=== PATIENT | male | born 1965 | race Caucasian/White ===

== ENCOUNTER 2023-05-01 05:48 | Inpatient (IN) | payer OTHER, SELFPAY ==
[2023-05-01] VITALS (18 sets, daily range): BP systolic 108–164; BP diastolic 58–94; PULSE 72–86; RESP 16–39; TEMP 36.2–36.8; O2SAT 94–100; BMI 39.9; BMI 39.2
--- NOTE | 2023-05-01 06:07 | EKG12_ITS ---
Test Reason : CP Blood Pressure : / mmHG Vent. Rate : 070 BPM Atrial Rate : 070 BPM P-R Int : 172 ms QRS Dur : 096 ms QT Int : 344 ms P-R-T Axes : 032 019 076 degrees QTc Int : 371 ms Sinus rhythm with marked sinus arrhythmia Nonspecific ST and T wave abnormality Abnormal ECG Confirmed by QUINTON PEREZ, KRYSTLE ([id number]), book or script editor SHERRY LOYA ([id number]) on 05/02/2023 5:55:50 AM Referred By: JENNI Confirmed By:KRYSTLE ALCANTARA MD
--- NOTE | 2023-05-01 06:08 | ED.VIS.CHEST ---
HPI History of Present Illness Chief Complaint: Chest Pain Informant: patient, spouse/S.O. and EMS Onset/Context/Timing Onset: Today Narrative Narrative: Patient presents secondary to chest pain. He states he got up around 330 this morning to start doing chores. He felt okay when he got up but while doing chores developed midsternal chest pain. Patient went back to the house and was able to call for EMS. Patient's pain improved after 2 sublingual nitroglycerin. He also received aspirin. Patient actually states he has been having similar pain for the past 2 or 3 weeks with exertion. He will improve when he sits to rest. He had not told anyone about the chest pain he had been experiencing. Family history significant for mother passing from a heart attack at the age of 59. [facility] Medical History Myasthenia gravis Home Medications atorvastatin 40 mg tablet 40 mg PO QHS 05/01/23 [History Last Taken Unknown] hydrochlorothiazide 1 cap PO DAILY 05/01/23 [History Last Taken Unknown] telmisartan 40 mg tablet 40 mg PO DAILY 05/01/23 [History Last Taken Unknown] Allergy/AdvReac Type Severity Reaction Status Date / Time No Known Allergies Allergy Verified 05/01/23 05:55 Family History (Updated 05/01/23 @ 07:[address] Edis Guzmán MD) Other Heart disease Social History Smoking Status: Never smoker ROS ROS ED Constitutional Constitutional ED: Denies chills or fever(s) Eyes Eyes: Denies change in vision or discharge from eye(s) ENT ENT ED: Denies discharge from eye(s), rhinorrhea or sore throat Cardiovascular Cardiovascular: Reports chest pain; Denies palpitations Respiratory/Chest Respiratory/Chest: Denies cough or dyspnea Gastrointestinal Gastrointestinal: Denies abdominal pain, nausea or vomiting Musculoskeletal Musculoskeletal: Reports extremity pain; Denies back pain Integumentary Denies Abrasions or rash Neurologic Neurologic: Denies headache(s) or weakness Psychiatric Psychiatric: Denies anxiety or depression Allergic/Immunologic Allergic/Immunologic ED: Denies lip swelling or urticaria EXAM Physical Exam Const Vital Signs: 05/01/23 05:56 05/01/23 06:01 05/01/23 06:18 Temperature 97.1 F L 97.1 F L Temperature Source Temporal Temporal Pulse Rate 80 80 Respiratory Rate 30 H 30 H Blood Pressure 122/76 H 122/76 H Blood Pressure Mean 91 91 Pulse Ox 99 97 98 Oxygen Delivery Method Room Air Room Air Room Air Positive well nourished and well developed General Appearance ED: well developed HEENT Reports moist mucous membranes Eyes EOMs intact bilaterally Chest Wall inspection of chest normal and palpation of chest normal Resp normal respiratory effort and clear to auscultation bilaterally Cardio regular rate and regular rhythm GI soft to palpation and non-tender Extremity normal to inspection Neuro oriented x3 and no sensory deficits noted Motor Exam: strength 5/5 throughout Psych mental status grossly normal Skin no rashes or lesions noted Heart Score History: Moderately Suspicious ECG: Nonspecific Repolarization Age: >45 - <65 years Risk Factors: 1 or 2 Risk Factors Troponin: >/=3 x Normal Limit Score: 6 MDM MDM MDM Narrative Medical decision making narrative: Prehospital EKG was reviewed and revealed no evidence of acute ischemia. He has already received aspirin and 2 sublingual nitroglycerin. Patient placed on loss prevention leader. EKG obtained to evaluate for cardiac arrhythmia/ischemia. Chest x-ray obtained to evaluate for acute lung pathology, cardiac size, or mediastinal abnormality. Labwork obtained to evaluate for leukocytosis, anemia, and electrolyte derangement. History & Record Review Discussion w/independent historian: EMS personnel, Patient and Significant other Lab Data Attestation: I reviewed the patient's lab results. Labs: Laboratory Results - last 24 hr 05/01/23 05:15 WBC 9.7 RBC 5.07 Hgb 15.0 Hct 45.5 MCV 89.7 MCH 29.6 MCHC 33.0 RDW Std Deviation 42.7 RDW Coeff of Dre 13.2 Plt Count 253 MPV 11.1 Immature Gran % (Auto) 0.600 Neut % (Auto) 51.7 Lymph % (Auto) 36.7 Clay % (Auto) 8.4 Eos % (Auto) 2.2 Baso % (Auto) 0.4 Absolute Neuts (auto) 5.0 Absolute Lymphs (auto) 3.57 Nucleated RBC % 0 Sodium 138 Potassium 4.6 Chloride 106 Carbon Dioxide 30.0 Anion Gap 2 L BUN 14 Creatinine 1.16 Estim Creat Clear Calc 77.12 Est GFR (MDRD) Af Amer 83 Est GFR (MDRD) Non-Af 69 BUN/Creatinine Ratio 12.1 Glucose 121 H Calcium 9.9 Troponin I High Sens 271 H* Radiography Chest X-Ray - ED: 1 View, Read by ED Physician and Chronic Changes Diagnostic Testing: Clinical Impression(s) from Imaging Studies Chest X-Ray 05/01/23 06:20 IMPRESSION: No acute findings in the chest. Electronically Signed: Sweetie Kendrick MD at 6:44 EST , EKG Initial EKG: Attestation: I personally reviewed and interpreted this EKG as follows: Interpretation: Sinus Rhythm (Sinus at [address] change. Some baseline artifact noted. Prehospital EKG had been reviewed and revealed no evidence of ischemia.) Treatment and Re-Evaluation :: CBC was normal white count 9.7 with a hemoglobin of 15. Chemistry studies unremarkable. Troponin is elevated at 271. Portable chest x-ray per my interpretation reveals chronic changes with no focal infiltrate. Radiology interpretation reviewed and agrees. EKG is sinus rhythm with no obvious ischemia. On repeat evaluation patient states his pain is around a 2. He does not feel short of breath. I spoke with Dr. Burgos, on-call for cardiology. He asked that we start the patient on a heparin drip and keep him n.p.o. Plan will be to go for a heart cath today. I will also place Nitropaste on his chest as he is still having some mild chest pain. I will speak with hospitalist regarding admission. Discharge Plan Dx/Rx/DC Orders Clinical Impression: Non-ST elevation SC (NSTEMI) Disposition Disposition: Acute Care [facility]
--- NOTE | 2023-05-01 06:20 | RAD_ITS ---
EXAM: XR CHEST, 1 VIEW CLINICAL INDICATION: chest pain TECHNIQUE: Frontal view of the chest. COMPARISON: No relevant prior studies available. FINDINGS: LUNGS AND PLEURAL SPACES: Mildly low lung volumes. No convincing infiltrate or effusion. No pneumothorax. HEART: Unremarkable. Cardiac silhouette not enlarged. MEDIASTINUM: Central airways and mediastinal contour are unremarkable. BONES/JOINTS: Minimal thoracic spondylosis. No acute fracture. SOFT TISSUES: Unremarkable. RAD/Chest 1 View (Portable) IMPRESSION: No acute findings in the chest. Electronically Signed: Sweetie Kendrick MD at 6:44 EST ,
[2023-05-01 06:40] LABS: Absolute Lymphocyte Count 3.57 X10^3/uL (0.83-4.51); Basophil# 0.04 X10^3/uL; Basophil% 0.4 % (0-1); Eosinophil# 0.21 X10^3/uL; Eosinophils% 2.2 % (0-5); Hematocrit 45.5 % (40-54); Lymphocyte # 3.57 X10^3/ul (0.83-4.51); Lymphocyte % 36.7 % (19-41); Mean Corpuscular Hgb 29.6 pg (27.0-32.0); Mean Corpuscular Volume 89.7 fL (80-94); Mean Platelet Vol. 11.1 fl (6.2-12.0); Monocyte# 0.82 X10^3/uL; Monocyte% 8.4 % (0-10); NRBC Flagged by Analyzer 0 % (0-5); Neutrophil # 5.04 X10^3/uL (2.7-7.7); Neutrophil % 51.7 % (47-70); Platelet Count 253 K/mm3 (150-450); RBC Distribution Width CV 13.2 % (11.6-14.6); RBC Distribution Width SD 42.7 fl (35.1-43.9); Red Blood Count 5.07 M/mm3 (4.6-6.2); White Blood Count 9.7 K/mm3 (4.4-11.0)
[2023-05-01 07:06] LABS: Anion Gap 2 (5-15); BUN 14 mg/dL (7-18); BUN/Creat Ratio 12.1 RATIO (10-20); Calcium,Total 9.9 mg/dL (8.5-10.1); Chloride 106 mmol/L (98-107); Creatinine, Serum 1.16 mg/dL (0.70-1.30); EST Glomerular Filtration Rate 69 mL/min (>60); Est Glom Filt Rate - Afr Amer 83 mL/min (>60); Estimated Creatinine Clearance 77.12 ml/min; Glucose 121 mg/dL (74-106); Potassium 4.6 mmol/L (3.5-5.1); Sodium Level 138 mmol/L (136-145); Troponin-I HS (w/2H Reflex) 271 pg/mL (3.0-78.0)
--- NOTE | 2023-05-01 07:28 | PCM.HP.STD ---
HPI - General General Date of Admission: 05/01/23 HPI Narrative CARLY ORELLANA, is a 58 M who presents to the hospital with chest pain. He has been having intermittent chest pain for the last several weeks but today it was worse and was not going away. He denies any association with activity in terms of making his chest pain better or worse. He did have an elevated troponin on admission to the ER with a nonischemic EKG soon started on a heparin drip and cardiology was consulted by the ER and they plan to proceed with a heart cath today. [facility] Medical History (Updated 05/01/23 @ 12:46 by Krys CRUZ, PA) CAD (coronary artery disease), [place] coronary artery Cardiomyopathy, ischemic Meningitis spinal Myasthenia gravis Home Medications atorvastatin 40 mg tablet 40 mg PO QHS 05/01/23 [History Last Taken Unknown] hydrochlorothiazide 1 cap PO DAILY 05/01/23 [History Last Taken Unknown] telmisartan 40 mg tablet 40 mg PO DAILY 05/01/23 [History Last Taken Unknown] Allergy/AdvReac Type Severity Reaction Status Date / Time No Known Allergies Allergy Verified 05/01/23 05:55 Family History (Updated 05/01/23 @ 08:30 by Amanda Shine) Mother Heart disease Father CVA (cerebral vascular accident) Diabetes Daughter Heart disease Surgical History (Updated 05/01/23 @ 12:46 by Krys CRUZ, PA) S/P coronary artery stent placement Social History Smoking Status: Never smoker ROS Constitutional Constitutional: Denies chills, fatigue, fever(s) or malaise Eyes Eyes: Denies blurry vision ENT HEENT: Denies headache(s) or nasal discharge Cardiovascular Cardiovascular: Reports chest pain; Denies dyspnea on exertion or syncope Respiratory/Chest Respiratory/Chest: Denies cough, shortness of breath at rest or shortness of breath with exertion Gastrointestinal Gastrointestinal: Denies constipation, diarrhea, nausea or vomiting Genitourinary Genitourinary: Denies dysuria Neurologic Neurologic: Denies focal weakness, numbness or tremor(s) Psychiatric Psychiatric: Denies anxiety or depression Vital Signs Vital Signs Vital Signs: 05/01/23 05:56 05/01/23 06:01 05/01/23 06:18 Temperature 97.1 F L 97.1 F L Temperature Source Temporal Temporal Pulse Rate 80 80 Respiratory Rate 30 H 30 H Blood Pressure 122/76 H 122/76 H Blood Pressure Mean 91 91 Pulse Ox 99 97 98 Oxygen Delivery Method Room Air Room Air Room Air Weight Weight: 294 lb 12.128 oz Body Mass Index (BMI) 39.9 Physical Exam Narrative General: Alert, Oriented x3, Cooperative, No apparent distress, morbid obesity HEENT: Atraumatic, PERRLA, EOMI, Normocephalic Oral: Moist Mucosa Neck: Supple, No JVD Lungs: Diminished, Normal air movement, No rhonchi, No wheeze, No rales Cardiovascular: Regular rate, Regular Rhythm, Normal S1, Normal S2, No murmurs Abdomen: Soft, Non Tender, Non-Distended, No Hepato-splenomegaly Extremities: No edema, Capillary Refill Less than 3 Seconds Skin: No rashes, No breakdown Musculoskeletal: No Tenderness to Palpation of Joints or Extremities Neurological: Cranial nerves II-XII grossly intact, Motor Exam 5/5 strength throughout, Sensory exam intact to light touch and pain Psych/Mental Status: Flat Results Lab / Micro Data 05/01/23 05:15 05/01/23 05:15 Labs: Laboratory Results - last 24 hr 05/01/23 05:15: WBC 9.7, RBC 5.07, Hgb 15.0, Hct 45.5, MCV 89.7, MCH 29.6, MCHC 33.0, RDW Std Deviation 42.7, RDW Coeff of Dre 13.2, Plt Count 253, MPV 11.1, Immature Gran % (Auto) 0.600, Neut % (Auto) 51.7, Lymph % (Auto) 36.7, Marion % (Auto) 8.4, Eos % (Auto) 2.2, Baso % (Auto) 0.4, Absolute Neuts (auto) 5.0, Absolute Lymphs (auto) 3.57, Nucleated RBC % 0, Sodium 138, Potassium 4.6, Chloride 106, Carbon Dioxide 30.0, Anion Gap 2 L, BUN 14, Creatinine 1.16, Estim Creat Clear Calc 77.12, Est GFR (MDRD) Af Amer 83, Est GFR (MDRD) Non-Af 69, BUN/Creatinine Ratio 12.1, Glucose 121 H, Calcium 9.9, Troponin I High Sens 271 H* Imagaing Radiology Impression Chest X-Ray 05/01/23 06:20 IMPRESSION: No acute findings in the chest. Electronically Signed: Sweetie Kendrick MD at 6:44 EST , Assessment & Plan Assessment/Plan (1) Non-ST elevation ID (NSTEMI): PLAN: Plan 1. Non-STEMI/HLD/HTN/morbid obesity ? Can resume his home blood pressure medications ? Will consult cardiology for heart cath ? Echo is pending ? Will continue with the heparin drip ? I did spend 20 minutes discussing lifestyle modifications in terms of weight loss and dieting 2. Myasthenia gravis ? This is limited his ability to work however he does not take any chronic medications he does take natural supplements which she says has helped DVT: Heparin drip 75 minutes was spent on direct patient care, including documentation as well as chart review and collaboration with colleagues Charges/Coding Visit Charges Inpatient E&M: 26099 Init Hosp L3
[2023-05-01] MEDS: Nitroglycerin Oint 1 INCH PACKET TD (07:36)
[2023-05-01] MEDS: Heparin Injection (Vial) 5,000 UNIT/ML VIAL 4000 UNIT IV (07:41)
[2023-05-01] MEDS: HEPARIN/D5w 25,000 UNITS 25,000 UNITS/250 ML IV.SOLN. 10 UNITS CONT INF (07:42)
[2023-05-01 07:50] LABS: International Normalized Ratio 0.9; Prothrombin Time (Protime)PT. 12.3 SECONDS (11.7-14.9)
[2023-05-01 07:51] LABS: Partial Thromboplast Time 26.1 Seconds (24.1-36.2)
[2023-05-01 08:28] LABS: Reflex Troponin-HS? (from REC) Y
[2023-05-01 09:21] LABS: Troponin-I HS 8901 pg/mL (3.0-78.0)
--- NOTE | 2023-05-01 09:29 | EKG12_ITS ---
Test Reason : CP Blood Pressure : / mmHG Vent. Rate : 090 BPM Atrial Rate : 090 BPM P-R Int : 168 ms QRS Dur : 100 ms QT Int : 360 ms P-R-T Axes : 017 011 044 degrees QTc Int : 440 ms Normal sinus rhythm Septal infarct , age undetermined Abnormal ECG When compared with ECG of 01-MAY-2023 05:54, MANUAL COMPARISON REQUIRED, DATA IS UNCONFIRMED Confirmed by QUINTON PEREZ, KRYSTLE ([id number]), news assignment editor SHERRY LOYA ([id number]) on 05/02/2023 6:02:17 AM Referred By: Confirmed By:KRYSTLE ALCANTARA MD
--- NOTE | 2023-05-01 09:56 | ECHOD_ITS ---
Reason For Study: NSTEMI Procedure This was a 2D Doppler, Color Flow transthoracic echocardiogram. The study was technically difficult. Exam performed portable in patient room. Left Ventricle Normal LV size. Mild eccentric left ventricular hypertrophy. Apical false tendon noted. The estimated ejection fraction is 45-50 %. Stage 1 diastolic dysfunction. There are regional wall motion abnormalities as specified. Mid-anteroseptal : Hypokinetic. Mid-Anterior : Hypokinetic. Anterior [place] : Hypokinetic. Lateral [place] : Hypokinetic. Inferior [place] : Hypokinetic. Septal [place] : Hypokinetic. Right Ventricle Normal RV size. Normal systolic function. Atria The left and right atria are normal. Mitral Valve The mitral valve is structurally normal. No prolapse or stenosis seen. Trivial mitral valve insufficiency. Tricuspid Valve Normal tricuspid valve. Trivial tricuspid valve insufficiency. Right ventricular systolic pressure estimated to be 16 mmHg. Aortic Valve Trisinus/trileaflet aortic valve. Mild focal aortic valve calcification. Aortic sclerosis, no stenosis. Pulmonic Valve Normal pulmonic valve. Great Vessels Normal aortic root. Pericardium/Pleural No pericardial effusion. Medication Diluted definity 7ml given slow IV push to enhance endocardial definition. MMode/2D Measurements & Calculations LVIDd: 3.4 cm IVSd: 1.3 cm Ao root diam: 3.2 cm LVIDs: 2.6 cm LVPWd: 0.96 cm RVDd: 3.2 cm FS: 24.0 % LAV(MOD-bp): 39.1 ml LVAd ap4: 32.7 cm2 LVAd ap2: 29.9 cm2 LAV(MOD-bp) Indexed: 15.7 ml/m2 LVLd ap4: 9.1 cm LVLd ap2: 8.9 cm LAV(MOD-sp2): 41.4 ml EDV(MOD-sp4): 95.8 ml EDV(MOD-sp2): 81.9 ml LAV(MOD-sp4): 35.4 ml EDV(sp4-el): 99.4 ml EDV(sp2-el): 84.8 ml LVAs ap4: 20.6 cm2 LVAs ap2: 18.1 cm2 LVLs ap4: 7.9 cm LVLs ap2: 7.8 cm ESV(MOD-sp4): 43.1 ml ESV(MOD-sp2): 34.8 ml ESV(sp4-el): 45.3 ml ESV(sp2-el): 35.8 ml EF(MOD-sp4): 55.0 % EF(MOD-sp2): 57.5 % EF(sp4-el): 54.4 % SV(MOD-sp4): 52.7 ml SV(MOD-sp2): 47.1 ml SV(sp4-el): 54.1 ml LA A4 area: 14.3 cm2 LA dimension(2D): 3.2 cm RA A4 area: 10.9 cm2 TAPSE: 1.7 cm Time Measurements MV dec time: 0.16 sec Doppler Measurements & Calculations MV E max erik: 36.9 cm/sec Lat Peak E' Erik: 9.2 cm/sec Med Peak E' Erik: 6.4 cm/sec MV A max erik: 74.7 cm/sec E/E' lat: 4.0 E/E' med: 5.8 MV E/A: 0.49 Ao V2 max: 97.8 cm/sec LV V1 max: 82.7 cm/sec PA V2 max: 72.8 cm/sec Ao max P.8 mmHg LV V1 max P.7 mmHg TR max erik: 179.8 cm/sec TR max P.9 mmHg ECHO/Echo Complete W/ Contrast Interpretation Summary Stage 1 diastolic dysfunction. There are regional wall motion abnormalities as specified. Mild eccentric left ventricular hypertrophy. The estimated ejection fraction is 45-50 %. No previous echo to compare The study was technically difficult. Contrast injection was performed. Ordering Physician: Krys Mora Referring Physician: Rodolfo Garcia Performed By: Kat Andrade RDCS
[2023-05-01] MEDS: Losartan Potassium 50 MG Tablet PO (11:03)
--- NOTE | 2023-05-01 12:37 | CON.PCM.CA_ITS ---
Assessment & Plan Assessment/Plan (1) Non-ST elevation RI (NSTEMI): (2) CAD (coronary artery disease), andreafski coronary artery: (3) S/P coronary artery stent placement: (4) Cardiomyopathy, ischemic: PLAN: Plan * Pt underwent stenting to his LAD. He will be started on Brilinta, this should not be interrupted for at least one year. He will be started on metoprolol, ASA, Atorvastatin. He will continue with his Losartan and HCTZ. * Pt EF was noted to be 45-50%. Will continue with medical therapy and repeat echo in 3 months to reassess LV function. * Will refer to cardiac rehab * Will f/u in office. HPI Consult Data Date of Consult: 05/01/23 HPI Narrative HPI Narrative: CARLY ORELLANA, is a 58 M who presented to [facility] ER with CP and elevated troponins. He stated he got up around 330 this morning to start doing chores. He felt okay when he got up but while doing chores developed midsternal chest pain. It was an 8/10. Patient went back to the house and was able to call for EMS. Patient's pain improved after 2 sublingual nitroglycerin. He also received aspirin. Patient actually states he has been having similar pain for the past 2 or 3 weeks with exertion. He will improve when he sits to rest. He had not told anyone about the chest pain he had been experiencing. Currently he has CP that is a 2/10. He notes it did improve with NTG paste. Troponins trended 271/8901. He does have a hx of myasthenia gravis. He does not have a hx of cardiac issu es, however his mom at the age of 59. [facility] Medical History (Updated 05/01/23 @ 12:46 by Krys CRUZ, PA) CAD (coronary artery disease), [place]re[place] coronary artery Cardiomyopathy, ischemic Meningitis spinal Myasthenia gravis Home Medications atorvastatin 40 mg tablet 40 mg PO QHS 05/01/23 [History Last Taken Unknown] hydrochlorothiazide 1 cap PO DAILY 05/01/23 [History Last Taken Unknown] telmisartan 40 mg tablet 40 mg PO DAILY 05/01/23 [History Last Taken Unknown] Allergy/AdvReac Type Severity Reaction Status Date / Time No Known Allergies Allergy Verified 12/19/23 05:55 Family History (Updated 05/01/23 @ 08:30 by Amanda Shine) Mother Heart disease Father CVA (cerebral vascular accident) Diabetes Daughter Heart disease Surgical History (Updated 05/01/23 @ 12:46 by Krys Mora PA, PA) S/P coronary artery stent placement Social History Smoking Status: Never smoker ROS Constitutional Constitutional: Denies chills, fatigue, frequent falls, headache(s) or lethargy Eyes Eyes: Denies acute decrease in peripheral vision, blurry vision or change in vision ENT HEENT: Denies dizziness, epistaxis, headache(s), tinnitus or vertigo Cardiovascular Cardiovascular: Reports chest pain at rest and chest pain with activity; Denies claudication, dyspnea at rest, dyspnea on exertion, edema, irregular heart rhythm, lightheadedness, orthopnea, orthostatic symptoms, palpitations or pedal edema Respiratory/Chest Respiratory/Chest: Denies cough or wheezing Gastrointestinal Gastrointestinal: Denies abdominal pain, bloating, coffee ground emesis, diarrhea, heartburn, hematemesis, hematochezia, melena or nausea Genitourinary Genitourinary: Denies hematuria Musculoskeletal Musculoskeletal: Denies myalgias, numbness or tingling Neurologic Neurologic: Denies abnormal gait, abnormal speech, memory loss, paresthesias or weakness Physical Exam Const alert, oriented x3, no apparent distress and healthy appearing HEENT normocephalic, head/scalp atraumatic, hearing grossly normal bilaterally, external ears normal, external nose normal and moist oral mucous membranes Eyes PERRL, EOMs intact bilaterally, conjunctivae normal and no scleral icterus Neck no lymphadenopathy, supple and no JVD Cardio regular rate, regular rhythm, S1 normal heart sound, S2 normal heart sound, no murmurs, no rub, no gallops, no clicks, no JVD and peripheral pulses 2+ throughout GI normal to inspection, nondistended, normoactive bowel sounds, soft to palpation, non-tender and non-distended Extremity normal to inspection, normal capillary refill, no clubbing, cyanosis or edema and no pedal edema Neuro oriented x3, CN's II-XII intact bilaterally, moves all extremities and no focal motor deficits Psych cooperative and affect normal Risk Stratification Risk Stratification Applicable: Yes Age >/= 65: No >/= 3 CAD Risk Factors (HTN, HLD, DM, family hx of CAD, or current smoker): Yes Aspirin Use in the Past 7 Days: No Severe Angina (>/= episodes in 24 hours): Yes EKG ST Changes >/= 0.5mm: No Positive Cardiac Marker: Yes KALEB Risk Stratification Score: 3 KALEB % Risk: 13% Risk Charges/Coding Visit Charges Office Visits / Consults: [id number] IP Consult L4 Objective Data Vital Signs: Vital Signs Temp Pulse Resp BP Pulse Ox O2 Del Method 98.2 F 79 16 130/80 H 99 Room Air 05/01/23 08:21 05/01/23 08:21 05/01/23 08:21 05/01/23 08:21 05/01/23 08:21 05/01/23 08:30 Oxygen Delivery Method Room Air Weight: 289 lb 3.944 oz Body Mass Index (BMI) 39.2 Lab / Micro Data 05/01/23 05:15 05/01/23 05:15 Labs: Laboratory Results - last 24 hr 05/01/23 05:15: WBC 9.7, RBC 5.07, Hgb 15.0, Hct 45.5, MCV 89.7, MCH 29.6, MCHC 33.0, RDW Std Deviation 42.7, RDW Coeff of Dre 13.2, Plt Count 253, MPV 11.1, Immature Gran % (Auto) 0.600, Neut % (Auto) 51.7, Lymph % (Auto) 36.7, Dillon % (Auto) 8.4, Eos % (Auto) 2.2, Baso % (Auto) 0.4, Absolute Neuts (auto) 5.0, Absolute Lymphs (auto) 3.57, Nucleated RBC % 0, PT 12.3, INR 0.9, APTT 26.1, Sodium 138, Potassium 4.6, Chloride 106, Carbon Dioxide 30.0, Anion Gap 2 L, BUN 14, Creatinine 1.16, Estim Creat Clear Calc 77.12, Est GFR (MDRD) Af Amer 83, Est GFR (MDRD) Non-Af 69, BUN/Creatinine Ratio 12.1, Glucose 121 H, Calcium 9.9, Troponin I High Sens 271 H* 05/01/23 08:37: Troponin I High Sens 8901 H* Cardiology Labs/Tests 05/01/23 05:15: WBC 9.7, RBC 5.07, Hgb 15.0, Hct 45.5, MCV 89.7, MCH 29.6, MCHC 33.0, Plt Count 253, MPV 11.1, Immature Gran % (Auto) 0.600, Neut % (Auto) 51.7, Lymph % (Auto) 36.7, [place] % (Auto) 8.4, Eos % (Auto) 2.2, Baso % (Auto) 0.4, Absolute Neuts (auto) 5.0, Nucleated RBC % 0, PT 12.3, INR 0.9, APTT 26.1, Sodium 138, Potassium 4.6, Chloride 106, Carbon Dioxide 30.0, Anion Gap 2 L, BUN 14, Creatinine 1.16, Est GFR (MDRD) Af Amer 83, Est GFR (MDRD) Non-Af 69, BUN/Creatinine Ratio 12.1, Glucose 121 H, Calcium 9.9 Rhythm: SR Radiography Diagnostic Testing: Radiology Impression Chest X-Ray 05/01/23 06:20 IMPRESSION: No acute findings in the chest. Electronically Signed: Sweetie Kendrick MD at 6:44 EST , Echocardiogram 05/01/23 09:56 Interpretation Summary Stage 1 diastolic dysfunction. There are regional wall motion abnormalities as specified. Mild eccentric left ventricular hypertrophy. The estimated ejection fraction is 45-50 %. No previous echo to compare The study was technically difficult. Contrast injection was performed. Ordering Physician: Krys Mora Referring Physician: Rodolfo Garcia Performed By: Kat Andrade, ADRIANA
--- NOTE | 2023-05-01 12:57 | PCIREPORT_ITS ---
PCI Cardiac Cath Report PCI Report: Procedure performed; 1. Moderate sedation 2. Selective left coronary angiography 3. Selective right coronary angiography 4. Successful PCI of the culprit which is subtotal mid LAD 99% with primary stenting using drug-eluting stent. 3 x 15 mm Sharad frontier drug-eluting stent up to 18 TOLU achieve an excellent result With reduction of stenosis to 0% And maintenance of KALEB-3 flow Placement of TR band to close the right radial artery arteriotomy site. Consent; Risk and benefit procedure explained detail patient agreed to proceed informed consent obtained. Preprocedure diagnosis; 58-year-old patient presented to the emergency department here at [facility] Clinical diagnosis of non-ST elevation MS with significant elevated troponins wall motion abnormality in the LAD distribution in the echo and abnormal EKG involving V1 V2 with a Q wave Early this morning complaining of symptoms of chest pain based on the history he has ongoing symptoms of chest pain. Patient has a change in the EKG in the LAD distribution and the echocardiographic evaluation also showed apical hypokinesia with EF in the range of 45-50% no significant valve abnormality Based on the clinical presentation patient was treated with medical therapy including aspirin high-dose statin atorvastatin as well as heparin and was brought as an urgent case this morning to the Director Of Email Marketing. Diagnostic and interventional catheter used 1. 5 [place] JL 4 diagnostic catheter 2. 5 [place] JR4 3. 5 [place] JL 400 cm guide catheter 3 x 15 mm resolute frontier drug-eluting stent Medication used in the Director Of Email Marketing we used #1 heparin heparin IV a total of 9000 units ACT level acceptable 2. Brilinta 180 mg was given in the Director Of Email Marketing 3. Patient was given aspirin by the EMS early this morning. Procedure in detail patient; Patient brought to the Director Of Email Marketing in fasting state Right radial artery area prepped and draped in the usual sterile fashion 6 [place] sheath placed in the right radial artery/thrombosheath Then we will proceed with a diagnostic catheter, 5 [place] JL 4 advancing over the cannulated the left main without difficulty multiple views of the left main obtained and identified the culprit lesion at the subtotal mid LAD. Then we will proceed with a 5 [place] JR4 cannulated the ostium of the RCA without difficulty and 2 views of the RCA were obtained Following this we decided to proceed for the PCI of the culprit lesion We used a 5 [place] JL 4 guide catheter Advanced sending aorta cannulated the left main And then we proceed with run-through guide guidewire/0.014 180 cm run-through extra floppy straight guide wire across the lesion in the mid LAD Then we will proceed with primary stenting using 3 x 15 mm drug-eluting stent were able to achieve the excellent result patient remained stable no symptoms of chest pain Following this a TR band applied to right radial artery arteriotomy site to maintain hemostasis Coronary angiography findings Patient had an echocardiogram which showed wall motion abnormality in the LAD distribution and the apical hypokinesia LV EGD was not performed to minimize the risk and to minimize risk of thrombus dislodgment from the apical portion of the LV. I reviewed the echocardiographic study prior to perform cardiac catheterization. 1. Left main is large vessel bifurcating into LAD and left circumflex Angiographically the left main is normal 2. Left anterior descending is a large vessel with subtotal mid LAD 99% After the second diagonal branch and a very septal branch There were 3 diagonal branches there is diagonal second and third diagonal with no significant atherosclerosis The mid LAD lesion which is the culprit is 99% followed by a lesion of around 40% in the mid LAD. #3 left circumflex is large with the pheresed OM has no significant atherosclerosis the circumflex in the AV groove is normal as well 4. RCA is large dominant and normal angiographically Conclusion recommendation 58-year-old patient based on the history from the patient had myasthenia gravis Also has elevated blood sugar advised to follow-up with the primary care physician to discuss further plan for management From cardiac standpoint patient will continue on dual antiplatelet therapy with Brilinta 90 mg twice daily in addition to low-dose aspirin for 1 year and aspirin indefinitely 3. Patient is scheduled for cardiac rehab program phase 1 4. Patient to follow-up with the cardiology group at [facility] for continuation of cardiac care and clinical follow-up. Andrés Burgos MD,[facility]
--- NOTE | 2023-05-01 13:00 | EKG12_ITS ---
Test Reason : Blood Pressure : / mmHG Vent. Rate : 080 BPM Atrial Rate : 080 BPM P-R Int : 184 ms QRS Dur : 108 ms QT Int : 350 ms P-R-T Axes : 033 027 064 degrees QTc Int : 403 ms Poor data quality, interpretation may be adversely affected Normal sinus rhythm Nonspecific T wave abnormality Abnormal ECG Confirmed by QUINTON PEREZ, KRYSTLE ([id number]), business editor SELAM MCCORMICK ([id number]) on 05/03/2023 10:49:41 AM Referred By: Confirmed By:KRYSTLE ALCANTARA MD
--- NOTE | 2023-05-01 13:15 | CASEMGMT ---
RN CM Face to Face with patient for initial transition planning/care coordination assessment. RN CM introduced self and role at [facility]. Patient lying in bed, alert and oriented, and daughter at bedside. Patient willing to participate in assessment and is able to answer all questions appropriately. Care providers, pharmacy, and demographics verified. Patient wishes to discharge home, denies need for home health at this time. Patient states he has no further needs or concerns at this time. CM to follow for discharge planning needs that may arise. PCP: Jose Specialists: none Preferred Pharmacy: [facility]; [facility] Retail Insurance: [employer] Prescription Benefit: none Living Will/HPOA: none LNOK: Living Arrangements: Patient lives with and children in a 2 story home, bed and bath on first floor, 3 steps to enter. Patient was independent at home. Transportation: Driving Service DME/HHC: Patient denies DME in the home. No previous HHC or SNF Disposition Plan: Patient to discharge home with family support and follow-up plans in place. Annita SCHMIDTN, RN, CM
[2023-05-01] MEDS: 0.9% Normal Saline (1000mL) 1,000 ML 75 ML IV (13:30)
[2023-05-01] MEDS: hydroCHLOROthiazide 12.5mg 12.5 MG PO (14:02)
--- NOTE | 2023-05-01 14:25 | CASEMGMT ---
Per Nursing admission questions patient does not have a Healthcare Power of Heating And Refrigeration Inspector or Healthcare Living Will. Patient declined information on documents. Mariza LOAIZA
--- NOTE | 2023-05-01 15:08 | CRPHASE1 ---
Patient Communication Patient Information PHII Cardiac Rehab Discussed with Patient:: Yes Guide to Cardiac Rehab Given to Patient:: Yes Cardiac Rehab Facility Choice List Given to Patient:: Yes Communication to Cardiac Rehab Insole Department Worker:: Andrés Burgos Phase II Cardiac Rehab:: Yes Sessions:: 36 sessions - 3 days/wk, 12 weeks Cardiac Rehabilitation Info Program Information Cardiac Rehabilitation Program Information: Cardiac Rehab The cardiac rehab team at [facility] consists of highly skilled exercise physiologists, nurses, respiratory therapists and physicians working together with you. Our purpose is to help you have a full recovery and achieve the goals you set for yourself. Over the years many of our patients have returned to activities they assumed they would never do again! We can help restore your confidence and motivation to make lifestyle changes that can have a significant impact on your health and quality of life! We can help answer questions and concerns you may have about exercise, lifestyle, medications, diet, stress and anxiety which are common following a hospitalization. WE monitor ECG and vital signs during exercise and discuss your progress with you and report to your physician(s). Cardiac Rehab is proven to help reduce readmissions, improve functional capacity and lower recurrence of problems with your heart. Our Cardiac Rehab program is Certified by the [place] [employer]Vascular [employer] Pulmonary [employer] (AACVPR) and Accredited by the [place] [employer] through our [facility]. You can contact us at . We invite you to call us with your questions or to get started in our program. If you have other questions or concerns be sure to ask your physician/provider during your follow-up visit. WE look forward to seeing you!
--- NOTE | 2023-05-01 15:09 | CRPH1.INSTRU ---
General Education Discussed with Patient CAD and cardiac anatomy and function:: Patient communicates acknowledgment Explanation of diagnoses and procedures:: Patient communicates acknowledgment Sign/Symptoms of MT:: Patient communicates acknowledgment Antiplatelet therapy: Patient communicates acknowledgment Proper use of NTG-SL: Patient communicates acknowledgment Emergency procedures and activation of EMS: Patient communicates acknowledgment Compliance of all prescribed medications: Patient communicates acknowledgment Smoking Risk Factors Patient Nicotine/Smoking Risk Factors Are:: Non-smoker Dyslipidemia Risk Factors Patient Dyslipidemia Risk Factors Are:: Total Cholesterol, Triglycerides, HDL and LDL Recommendations Recommendations Include:: Lipid profile provided, Reviewed NCEP/ATP guidelines and Therapeutic Lifestyle Change dietary guidelines Response Code Dyslipidemia Response Code:: Patient communicates acknowledgment Overweight/Obesity Risk Factors Patient Overweight/Obesity Risk Factors Are:: Obesity - > or = 30 Recommendations Recommendations Include:: Weight loss of 5-10%, Reduced calorie diet and Exercise 5-7 times/week Response Code Overweight/Obesity:: Patient communicates acknowledgment Hypertension Risk Factors Patient Hypertension Risk Factors Are:: No documented hx of HTN Diabetes Risk Factors Patient Diabetes Risk Factors Are:: No documented hx of diabetes Metabolic Syndrome Risk Factors Patient Metabolic Syndrome Risk Factors Are [3 of 5]:: Fasting blood sugar > 100 mg/dL, Waist circumference > 35 [female] or 40 [male], High triglyceride >150, Hypertension and Low HDL <40 [male] or < 50 [female] Recommendations Recommendations Include:: Reinforce compliance to risk factor modifications and Encouraged follow-up with Primary Care Physician Response Code Metabolic Syndrome Response Code:: Patient communicates acknowledgment Sedentary Risk Factors Patient Sedentary Risk Factors Are:: Lack of regular exercise Recommendations Recommendations Include:: Aerobic exercise 5-7 times/week for 20-30 minutes continuously, Benefits of regular exercise, Discussed home walking program and Monitored Outpatient Cardiac Rehab Response Code Sedentary Response Code:: Patient communicates acknowledgment Stress Recommendations Recommendations Include:: Identification of stressors, and assessment of coping skills and Stress management techniques Response Code Stress Response Code:: Patient communicates acknowledgment
--- NOTE | 2023-05-01 15:47 | CHAPLAIN ---
Type of Pastoral Visit _x__ Initial Visit ___ Follow-up Visit ___ On-call Visit ___ General Patient Visit ___ Spiritual Assessment ___ Family Conference ___ Bereavement ___ Rapid Response ___ Code Blue ___ Other (describe below) Pastoral Care Referral From ___ Patient _x__ Family _x__ Nurse ___ Physician ___ Price Analyst ___ Tax Lawyer ___ Other (describe below) Sacrament/Intervention _x__ Active listening ___ Anointing ___ Episcopalian ___ Bereavement ___ Communion ___ Claudia exploration ___ ___ Life review _x__ Prayer ___ Reconciliation ___ Sacrament of Sick _x__ Supportive presence ___ Wedding ___ Other (describe below) Pastoral Comments request came from staff that after talking with the spouse of the patient it would be appropriate and helpful to have this neon light installer meet with patient and offer support; this was done 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
[2023-05-01] MEDS: Acetaminophen 325 MG Tablet 650 MG PO (15:48)
[2023-05-01] MEDS: Atorvastatin Calcium 40 MG Tablet PO (20:55)
[2023-05-01] MEDS: Metoprolol Tartrate 25 MG Tablet PO (20:55)
[2023-05-02] MEDS: Acetaminophen 325 MG Tablet 650 MG PO (02:14)
[2023-05-02 02:15] VITALS: BP 109/80; PULSE 73; RESP 16; TEMP 36.8; O2SAT 93
[2023-05-02 04:17] LABS: ACT Activated Clotting Time 233 sec (74-137)
[2023-05-02 04:18] LABS: ACT Activated Clotting Time 244 sec (74-137)
[2023-05-02 05:31] LABS: Absolute Lymphocyte Count 2.82 X10^3/uL (0.83-4.51); Absolute Neutrophil Count 5.6 X10^3/uL (2.0-7.7); Basophil# 0.03 X10^3/uL; Basophil% 0.3 % (0-1); Eosinophil# 0.23 X10^3/uL; Eosinophils% 2.4 % (0-5); Hematocrit 42.6 % (40-54); Hemoglobin 14.1 g/dL (13.0-16.5); Lymphocyte # 2.82 X10^3/ul (0.83-4.51); Lymphocyte % 29.7 % (19-41); Mean Corp Hgb Conc 33.1 g/dL (32-36); Mean Corpuscular Hgb 29.8 pg (27.0-32.0); Mean Corpuscular Volume 90.1 fL (80-94); Mean Platelet Vol. 10.6 fl (6.2-12.0); Monocyte# 0.73 X10^3/uL; Monocyte% 7.7 % (0-10); NRBC Flagged by Analyzer 0 % (0-5); Neutrophil # 5.64 X10^3/uL (2.7-7.7); Neutrophil % 59.4 % (47-70); Platelet Count 215 K/mm3 (150-450); RBC Distribution Width CV 12.9 % (11.6-14.6); RBC Distribution Width SD 41.8 fl (35.1-43.9); Red Blood Count 4.73 M/mm3 (4.6-6.2); White Blood Count 9.5 K/mm3 (4.4-11.0)
[2023-05-02 06:10] LABS: ALB/GLOB Ratio 0.9 RATIO (0.9-2.4); AST(SGOT) 124 U/L (15-37); Alanine Aminotransfer ALT/SGPT 51 U/L (16-61); Albumin, Serum 3.2 g/dL (3.2-5.0); Alkaline Phosphatase 59 U/L (45-117); Anion Gap 6 (5-15); BUN 13 mg/dL (7-18); BUN/Creat Ratio 14.5 RATIO (10-20); Calcium,Total 8.6 mg/dL (8.5-10.1); Chloride 108 mmol/L (98-107); EST Glomerular Filtration Rate 93 mL/min (>60); Est Glom Filt Rate - Afr Amer 112 mL/min (>60); Globulin 3.5 g/dL (2.2-4.2); Glucose 109 mg/dL (74-106); Potassium 3.9 mmol/L (3.5-5.1); Protein, Total 6.7 g/dL (6.4-8.2); Sodium Level 139 mmol/L (136-145)
[2023-05-02 08:15] VITALS: BP 109/78; PULSE 85; RESP 12; TEMP 37; O2SAT 95
[2023-05-02 08:34] VITALS: O2SAT 96
[2023-05-02 09:11] VITALS: BP 109/78; PULSE 85
[2023-05-02] MEDS: hydroCHLOROthiazide 12.5mg 12.5 MG PO (09:11)
[2023-05-02] MEDS: Aspirin E.C. 81 MG Tablet PO (09:11)
[2023-05-02] MEDS: Losartan Potassium 50 MG Tablet PO (09:11)
[2023-05-02] MEDS: Metoprolol Tartrate 25 MG Tablet PO (09:11)
[2023-05-02] MEDS: TICAGRELOR 90 MG TABLET PO (09:15)
--- NOTE | 2023-05-02 10:00 | EKG12_ITS ---
Test Reason : AM EKG Blood Pressure : / mmHG Vent. Rate : 074 BPM Atrial Rate : 074 BPM P-R Int : 184 ms QRS Dur : 102 ms QT Int : 446 ms P-R-T Axes : 035 028 104 degrees QTc Int : 495 ms Normal sinus rhythm T wave abnormality, consider anterolateral ischemia Prolonged QT Abnormal ECG When compared with ECG of 01-MAY-2023 16:56, MANUAL COMPARISON REQUIRED, DATA IS UNCONFIRMED Confirmed by QUINTON PEREZ, KRYSTLE ([id number]), manuscript editor SHERRY LOYA ([id number]) on 05/04/2023 5:50:51 AM Referred By: Confirmed By:KRYSTLE ALCANTARA MD
--- NOTE | 2023-05-02 11:21 | DCINST_ITS ---
Discharge Instructions Diet Discharge Diet: Low fat / Low cholesterol Activity Discharge Activity: Return to Normal Activity Dressing / Incision Call your doctor if you observe: Fever of 101 or Higher, Shortness of breath, Dizziness, Fainting spells, Swelling in the ankles, Chest pain and Increased palpitations (irregular heartbeat) Follow Up Care Test Results: Test results from this visit will be discussed in further detail at your follow- up appointment, if applicable. Discharge Plan Admission Admit Date/Time: 05/01/23 07:20 Attending Provider: Edis Guzmán Primary Care Provider: Rodolfo Garcia Consulting Providers: Andrés Burgos Discharge Orders/Prescriptions Prescriptions: New aspirin 81 mg Tablet,Delayed Release (Dr/Ec) 81 mg PO DAILY@0800 30 Days Qty: 30 0RF Brilinta 90 mg Tablet 90 mg PO BID 30 Days Qty: 60 0RF carvedilol [Coreg] 3.125 mg tablet 3.125 mg PO BID Qty: 60 0RF Rx Instructions: must administer with a meal/food Jardiance 10 mg tablet 10 mg PO DAILY Qty: 30 0RF Continued hydrochlorothiazide 1 cap PO DAILY Rx Instructions: 12.5MG atorvastatin 40 mg tablet 40 mg PO QHS telmisartan 40 mg tablet 40 mg PO DAILY Referrals / Follow Up: Andrés Burgos MD [Med Staff - Active Staff] - Within 1 Month Rodolfo Garcia DO [Primary Care Provider] - Within 1 Week Disposition Disposition (needs filled in before D/C Order can be placed): Home, Self Care
[2023-05-02 11:24] VITALS: BP 110/67; PULSE 75; RESP 12; TEMP 37
--- NOTE | 2023-05-02 12:32 | NURSING ---
Pts PIV removed. Pt made aware of mendoza of Jardiance. Pt stated he can not pay that at this time. MD made aware. okay discharging pt without jardiance. Pt to follow up with PCP about jardicance. Discharge paperwork given and reviewed with pt. Other prescriptions being brought to bedside before pt leaves.
--- NOTE | 2023-05-02 13:34 | PN.CARD_ITS ---
<Statement entered by Andrés Burgos MD - 05/02/23 16:06> Pt seen & evaluated w/GEORGES. I personally interviewed & exam the pt. I was involved in all aspects of pt's orders, interpretation of results & treatment Subjective Subjective Pt seen and examined. He has not had any Cp or SOB overnight. Objective Data Vital Signs: Vital Signs Temp Pulse Resp BP Pulse Ox O2 Del Method 98.6 F 75 12 110/67 96 Room Air 05/02/23 11:24 05/02/23 11:24 05/02/23 11:24 05/02/23 11:24 05/02/23 08:34 05/02/23 11:24 Oxygen Delivery Method Room Air Weight: 289 lb 3.944 oz Body Mass Index (BMI) 39.2 Intake & Output: Intake and Output for Last 24 Hours 04/30/23 05/01/23 05/02/23 23:59 23:59 23:59 Intake Total 499.67 / 499.67 1450 / 1450 Balance 499.67 / 499.67 1450 / 1450 Lab / Micro Data 05/02/23 04:55 05/02/23 04:55 Labs: Laboratory Results - last 24 hr 05/01/23 12:00: Activated Clotting Time 233 H 05/01/23 12:35: Activated Clotting Time 244 H 05/02/23 04:55: WBC 9.5, RBC 4.73, Hgb 14.1, Hct 42.6, MCV 90.1, MCH 29.8, MCHC 33.1, RDW Std Deviation 41.8, RDW Coeff of Dre 12.9, Plt Count 215, MPV 10.6, Immature Gran % (Auto) 0.500, Neut % (Auto) 59.4, Lymph % (Auto) 29.7, [place] % (Auto) 7.7, Eos % (Auto) 2.4, Baso % (Auto) 0.3, Absolute Neuts (auto) 5.6, Absolute Lymphs (auto) 2.82, Nucleated RBC % 0, Sodium 139, Potassium 3.9, Chloride 108 H, Carbon Dioxide 25.0, Anion Gap 6, BUN 13, Creatinine 0.90, Estim Creat Clear Calc 99.40, Est GFR (MDRD) Af Amer 112, Est GFR (MDRD) Non-Af 93, BUN/Creatinine Ratio 14.5, Glucose 109 H, Calcium 8.6, Total Bilirubin 0.60, AST 124 H, ALT 51, Alkaline Phosphatase 59, Total Protein 6.7, Albumin 3.2, Globulin 3.5, Albumin/Globulin Ratio 0.9 Cardiology Labs/Tests 05/02/23 04:55: WBC 9.5, RBC 4.73, Hgb 14.1, Hct 42.6, MCV 90.1, MCH 29.8, MCHC 33.1, Plt Count 215, MPV 10.6, Immature Gran % (Auto) 0.500, Neut % (Auto) 59.4, Lymph % (Auto) 29.7, [place] % (Auto) 7.7, Eos % (Auto) 2.4, Baso % (Auto) 0.3, Absolute Neuts (auto) 5.6, Nucleated RBC % 0, Sodium 139, Potassium 3.9, Chloride 108 H, Carbon Dioxide 25.0, Anion Gap 6, BUN 13, Creatinine 0.90, Est GFR (MDRD) Af Amer 112, Est GFR (MDRD) Non-Af 93, BUN/Creatinine Ratio 14.5, Glucose 109 H, Calcium 8.6, Total Bilirubin 0.60 Physical Exam Const alert, oriented x3, no apparent distress and healthy appearing HEENT normocephalic, head/scalp atraumatic, hearing grossly normal bilaterally, external ears normal, external nose normal and moist oral mucous membranes Eyes PERRL, EOMs intact bilaterally, conjunctivae normal and no scleral icterus Neck no lymphadenopathy, supple and no JVD Cardio regular rate, regular rhythm, S1 normal heart sound, S2 normal heart sound, no murmurs, no rub, no gallops, no clicks, no JVD and peripheral pulses 2+ throughout GI normal to inspection, nondistended, normoactive bowel sounds, soft to palpation, non-tender and non-distended Extremity normal to inspection, normal capillary refill, no clubbing, cyanosis or edema and no pedal edema Extremity Narrative: right radial pulse normal Neuro oriented x3, CN's II-XII intact bilaterally, moves all extremities and no focal motor deficits Psych cooperative and affect normal Assessment & Plan Assessment/Plan (1) Non-ST elevation NV (NSTEMI): (2) CAD (coronary artery disease), pilot point coronary artery: (3) S/P coronary artery stent placement: (4) Cardiomyopathy, ischemic: PLAN: Plan * Pt underwent stenting to his LAD. He will be started on Brilinta, this should not be interrupted for at least one year. Will switch his metoprolol to low dose coreg. Will continue with Losartan, ASA and Atorvastatin. * Pt EF was noted to be 45-50%. Will add an SGL2 with coreg. Will repeat echo in 3 months to reassess LV function. * Will refer to cardiac rehab * Will f/u in office. Charges/Coding Visit Charges Inpatient E&M: 99832 Subs Hosp L2
--- NOTE | 2023-05-02 14:18 | DS.PCM_ITS ---
Providers Date of Admission: 05/01/23 Primary Care Physician: Dr. Rodolfo Garcia, Consultations 05/01/23 08:08 Consult: Cardiology Routine Consulting Provider: Andrés Burgos Reason for Consult: NSTEMI for cath EMERGENT Consult: No MD Notified: Yes Date Notified: 05/01/23 Time Notified: 07:28 Method of Notification: ED Physician Initiated Reason For Visit: NSTEMI Diagnosis Discharge Diagnosis (1) Non-ST elevation MS (NSTEMI): Status: Acute Code(s): I21.4 - Non-ST elevation (NSTEMI) myocardial infarction (2) CAD (coronary artery disease), [place] coronary artery: Status: Acute Code(s): I25.10 - Atherosclerotic heart disease of [place] coronary artery without angina pectoris (3) S/P coronary artery stent placement: Status: Acute Code(s): Z95.5 - Presence of coronary angioplasty implant and graft (4) Cardiomyopathy, ischemic: Status: Acute Code(s): I25.5 - Ischemic cardiomyopathy Medications at Discharge Home Medications atorvastatin 40 mg tablet 40 mg PO QHS 05/01/23 hydrochlorothiazide 1 cap PO DAILY 05/01/23 telmisartan 40 mg tablet 40 mg PO DAILY 05/01/23 aspirin 81 mg tablet,delayed release 81 mg PO DAILY@0800 30 days #30 tabs 05/02/23 carvedilol 3.125 mg tablet (Coreg) 3.125 mg PO BID #60 tabs 05/02/23 empagliflozin 10 mg tablet (Jardiance) 10 mg PO DAILY #30 tabs 05/02/23 ticagrelor 90 mg tablet (Brilinta) 90 mg PO BID 30 days #60 tabs 05/02/23 Hospital Course Operations None Procedures 2-D Echocardiogram and Cardiac catheterization Summary of Care Provided Minutes Spent on Discharge: 38 Hospital Course: Per HPI: CARLY ORELLANA, is a 58 M who presents to the hospital with chest pain. He has been having intermittent chest pain for the last several weeks but today it was worse and was not going away. He denies any association with activity in terms of making his chest pain better or worse. He did have an elevated troponin on admission to the ER with a nonischemic EKG soon started on a heparin drip and cardiology was consulted by the ER and they plan to proceed with a heart cath today. Hospital Course: 1. Non-STEMI status post stent to the mid LAD with coronary artery disease and reduced systolic function at 45 to 50% and stage I diastolic dysfunction? 58-year-old male presented to the hospital with shortness of breath and chest pain. He was taken to the Clin Tech secondary to elevated troponins in the setting of a non-STEMI and was found to have a 99% stenosis in his mid LAD that was stented. Postintervention he denies any chest pain and is feeling much better. Unfortunately the SGLT2 inhibitor Jardiance is too expensive so he would not be able to take that however we will continue with Coreg as well as aspirin and Brilinta. Will have him follow-up with cardiology within a month and he will likely need a repeat echo in 3 months to reassess his LV function. Can resume his other blood pressure medications and will benefit from cardiac rehab. Patient was cleared for discharge by cardiology. I discussed plan for discharge with the patient and his and expressed understanding of the risk and benefits of going home and are okay with going home today. Physical Exam Narrative General: Alert, Oriented x3, Cooperative, No apparent distress, morbid obesity HEENT: Atraumatic, PERRLA, EOMI, Normocephalic Oral: Moist Mucosa Neck: Supple, No JVD Lungs: Diminished, Normal air movement, No rhonchi, No wheeze, No rales Cardiovascular: Regular rate, Regular Rhythm, Normal S1, Normal S2, No murmurs Abdomen: Soft, Non Tender, Non-Distended, No Hepato-splenomegaly Extremities: No edema, Capillary Refill Less than 3 Seconds Skin: No rashes, No breakdown Musculoskeletal: No Tenderness to Palpation of Joints or Extremities Neurological: Cranial nerves II-XII grossly intact, Motor Exam 5/5 strength throughout, Sensory exam intact to light touch and pain Psych/Mental Status: Flat Weight / BMI Weight Weight: 289 lb 3.944 oz Body Mass Index (BMI) 39.2 ABG / Lab / Microbiology Data 05/02/23 04:55 05/02/23 04:55 Laboratory: Laboratory Results - last 24 hr 05/01/23 12:00: Activated Clotting Time 233 H 05/01/23 12:35: Activated Clotting Time 244 H 05/02/23 04:55: WBC 9.5, RBC 4.73, Hgb 14.1, Hct 42.6, MCV 90.1, MCH 29.8, MCHC 33.1, RDW Std Deviation 41.8, RDW Coeff of Dre 12.9, Plt Count 215, MPV 10.6, Immature Gran % (Auto) 0.500, Neut % (Auto) 59.4, Lymph % (Auto) 29.7, [place] % (Auto) 7.7, Eos % (Auto) 2.4, Baso % (Auto) 0.3, Absolute Neuts (auto) 5.6, Absolute Lymphs (auto) 2.82, Nucleated RBC % 0, Sodium 139, Potassium 3.9, Chloride 108 H, Carbon Dioxide 25.0, Anion Gap 6, BUN 13, Creatinine 0.90, Estim Creat Clear Calc 99.40, Est GFR (MDRD) Af Amer 112, Est GFR (MDRD) Non-Af 93, BUN/Creatinine Ratio 14.5, Glucose 109 H, Calcium 8.6, Total Bilirubin 0.60, AST 124 H, ALT 51, Alkaline Phosphatase 59, Total Protein 6.7, Albumin 3.2, Globulin 3.5, Albumin/Globulin Ratio 0.9 D/C Instructions Discharge Diet: Low fat / Low cholesterol Call your doctor if you observe: Fever of 101 or Higher, Shortness of breath, Dizziness, Fainting spells, Swelling in the ankles, Chest pain and Increased palpitations (irregular heartbeat) Meaningful Use Info Meaningful Use Diagnoses (Choose all that apply): None applicable Discharge Plan Admission Admit Date/Time: 05/01/23 07:20 Attending Provider: Edis Guzmán Primary Care Provider: Rodolfo Garcia Consulting Providers: Andrés Burgos Discharge Orders/Prescriptions Prescriptions: New aspirin 81 mg Tablet,Delayed Release (Dr/Ec) 81 mg PO DAILY@0800 30 Days Qty: 30 0RF Brilinta 90 mg Tablet 90 mg PO BID 30 Days Qty: 60 0RF carvedilol [Coreg] 3.125 mg tablet 3.125 mg PO BID Qty: 60 0RF Rx Instructions: must administer with a meal/food Jardiance 10 mg tablet 10 mg PO DAILY Qty: 30 0RF Continued hydrochlorothiazide 1 cap PO DAILY Rx Instructions: 12.5MG atorvastatin 40 mg tablet 40 mg PO QHS telmisartan 40 mg tablet 40 mg PO DAILY Referrals / Follow Up: Andrés Burgos MD [Med Staff - Active Staff] - Within 1 Month Rodolfo Garcia DO [Primary Care Provider] - Within 1 Week Disposition Disposition (needs filled in before D/C Order can be placed): Home, Self Care Charges/Coding Visit Charges Inpatient E&M: 90066 Disch Hosp >30min
== END 2023-05-02 14:01 | disposition home or self-care (01) | DRG 322 ==
LOC: ED 07:13 → PCU 07:32
PROVIDERS: Admitting Provider Family Medicine; Emergency Provider Emergency Medicine; PCP Family Medicine; Visit Provider Family Medicine
DX: I21.4 Non-ST elevation (NSTEMI) myocardial infarction (principal); G70.00 Myasthenia gravis without (acute) exacerbation; E66.01 Morbid (severe) obesity due to excess calories; I25.110 Atherosclerotic heart disease of native coronary artery with unstable angina pectoris; I10 Essential (primary) hypertension; E78.5 Hyperlipidemia, unspecified; I25.5 Ischemic cardiomyopathy; Z68.39 Body mass index [BMI] 39.0-39.9, adult; Z95.5 Presence of coronary angioplasty implant and graft; Z79.02 Long term (current) use of antithrombotics/antiplatelets; Z79.82 Long term (current) use of aspirin; Z79.899 Other long term (current) drug therapy; Z82.49 Family history of ischemic heart disease and other diseases of the circulatory system
CPT/HCPCS: 36415; 71045; 80048; 80053; 84484; 85025; 85347; 85610; 85730; 92928; 93005; 93306; 93454; 99152; 99153; 99285; C1887; J7030; Q9957; Q9967; A4216; C1769; C1874; C1894; C8929; C9600

== ENCOUNTER 2023-05-03 11:02 | Inpatient (IN) | payer OTHER, SELFPAY ==
[2023-05-03] VITALS (13 sets, daily range): BP systolic 114–138; BP diastolic 76–101; PULSE 80–97; RESP 16–18; TEMP 36.8–36.9; O2SAT 94–100; BMI 38.0
--- NOTE | 2023-05-03 11:25 | RAD_ITS ---
HISTORY: chest pain. TECHNIQUE: XR Chest 1 View. COMPARISON: 05/01/2023. FINDINGS: CARDIOMEDIASTINAL BORDERS: Cardiac silhouette within normal limits in size. Mediastinal contour unremarkable. LUNGS: Radiographically clear. PLEURA: No pleural effusion or pneumothorax seen. OSSEOUS STRUCTURES: Unremarkable. RAD/Chest 1 View (Portable) IMPRESSION: No acute cardiopulmonary process identified. Electronically Signed: Nisa Barajas MD at 11:40 EST ,
--- NOTE | 2023-05-03 11:30 | EKG12_ITS ---
Test Reason : L ARM PAIN AFTER STENT PLACEMENT Blood Pressure : / mmHG Vent. Rate : 089 BPM Atrial Rate : 089 BPM P-R Int : 178 ms QRS Dur : 102 ms QT Int : 386 ms P-R-T Axes : 030 033 101 degrees QTc Int : 469 ms Normal sinus rhythm Septal infarct , age undetermined ST & T wave abnormality, consider anterolateral ischemia Abnormal ECG When compared with ECG of 02-MAY-2023 06:05, MANUAL COMPARISON REQUIRED, DATA IS UNCONFIRMED Confirmed by QUINTON PEREZ, KRYSTLE ([id number]), news videotape editor SHERRY LOYA ([id number]) on 05/15/2023 10:08:09 AM Referred By: Confirmed By:KRYSTLE ALCANTARA MD
[2023-05-03 11:37] LABS: Absolute Lymphocyte Count 2.56 X10^3/uL (0.83-4.51); Basophil# 0.03 X10^3/uL; Basophil% 0.3 % (0-1); Eosinophil# 0.17 X10^3/uL; Eosinophils% 1.8 % (0-5); Hematocrit 46.5 % (40-54); Hemoglobin 15.9 g/dL (13.0-16.5); Lymphocyte # 2.56 X10^3/ul (0.83-4.51); Lymphocyte % 26.9 % (19-41); Mean Corp Hgb Conc 34.2 g/dL (32-36); Mean Corpuscular Hgb 30.5 pg (27.0-32.0); Mean Corpuscular Volume 89.3 fL (80-94); Mean Platelet Vol. 10.1 fl (6.2-12.0); Monocyte% 7.3 % (0-10); NRBC Flagged by Analyzer 0 % (0-5); Neutrophil # 6.02 X10^3/uL (2.7-7.7); Neutrophil % 63.2 % (47-70); Platelet Count 248 K/mm3 (150-450); RBC Distribution Width SD 42.2 fl (35.1-43.9); Red Blood Count 5.21 M/mm3 (4.6-6.2); White Blood Count 9.5 K/mm3 (4.4-11.0)
[2023-05-03 11:55] LABS: Anion Gap 8 (5-15); BUN 17 mg/dL (7-18); BUN/Creat Ratio 14.9 RATIO (10-20); Calcium,Total 9.7 mg/dL (8.5-10.1); Chloride 102 mmol/L (98-107); Creatinine, Serum 1.14 mg/dL (0.70-1.30); EST Glomerular Filtration Rate 70 mL/min (>60); Est Glom Filt Rate - Afr Amer 85 mL/min (>60); Glucose 124 mg/dL (74-106); Potassium 3.6 mmol/L (3.5-5.1); Sodium Level 136 mmol/L (136-145); Troponin-I HS (w/2H Reflex) 7940 pg/mL (3.0-78.0)
[2023-05-03] MEDS: Nitroglycerin SL (ED/IMG/CATH) 0.4 MG TABLET SL (11:58)
--- NOTE | 2023-05-03 12:14 | EDS_ITS ---
HPI History of Present Illness Chief Complaint: Chest Other Informant: patient Narrative Narrative: Patient is a 58 year old male with history of myasthenia gravis and coronary disease status post stent placement to the LAD [address] Paul. Chart review shows that he had a 99% lesion of the proximal LAD that was stented. He is placed on Brilinta and aspirin. This was diagnosed after he was found to have an NSTEMI. He is presenting today with left arm and shoulder pain. States it is more of an ache. It waxes and wanes in intensity. Denies any aggravating or alleviating factors. States he feels mildly short of breath but feels his baseline. Upon further questioning no symptoms driving here was having some mild chest discomfort which again he has a hard time characterizing. Has been compliant with his aspirin and Brilinta. Denies any nausea or vomiting, neck pain, back pain or sweating. No other complaints at this time. Denies any trauma to his shoulder. [facility] Medical History CAD (coronary artery disease), [place] coronary artery Cardiomyopathy, ischemic Meningitis spinal Myasthenia gravis Home Medications atorvastatin 40 mg tablet 40 mg PO QHS 05/01/23 [History Last Taken Unknown] hydrochlorothiazide 1 cap PO DAILY 05/01/23 [History Last Taken Unknown] telmisartan 40 mg tablet 40 mg PO DAILY 05/01/23 [History Last Taken Unknown] aspirin 81 mg tablet,delayed release 81 mg PO DAILY@0800 30 days #30 tabs 05/02/23 [Rx Last Taken Unknown] carvedilol 3.125 mg tablet (Coreg) 3.125 mg PO BID #60 tabs 05/02/23 [Rx Last Taken Unknown] empagliflozin 10 mg tablet (Jardiance) 10 mg PO DAILY #30 tabs 05/02/23 [Rx Last Taken Unknown] ticagrelor 90 mg tablet (Brilinta) 90 mg PO BID 30 days #60 tabs 05/02/23 [Rx Last Taken Unknown] Allergy/AdvReac Type Severity Reaction Status Date / Time No Known Allergies Allergy Verified 05/03/23 11:03 Family History Mother Heart disease Father CVA (cerebral vascular accident) Diabetes Daughter Heart disease Surgical History S/P coronary artery stent placement (04/30/23) Social History Smoking Status: Never smoker ROS ROS ED Constitutional Constitutional ED: Denies chills or fever(s) Cardiovascular Cardiovascular: Reports as per HPI and chest pain; Denies palpitations Respiratory/Chest Respiratory/Chest: Reports dyspnea; Denies cough Gastrointestinal Gastrointestinal: Denies abdominal pain, nausea or vomiting Musculoskeletal Musculoskeletal: Reports other Details: left shoulder pain ; Denies arthralgias or myalgias Integumentary Denies rash Neurologic Neurologic: Denies headache(s), paresthesias or weakness Psychiatric Psychiatric: Denies anxiety Hematologic/Lymphatic Hematologic/Lymphatic: Denies easy bleeding EXAM Physical Exam Const Vital Signs: 05/03/23 11:03 05/03/23 11:21 05/03/23 11:21 Temperature 98.2 F Temperature Source Temporal Pulse Rate 96 Respiratory Rate 18 Respiratory Effort Normal Non-Labored Blood Pressure 138/86 H Blood Pressure Mean 103 Pulse Ox 98 Oxygen Delivery Method Room Air Room Air 05/03/23 11:58 05/03/23 12:03 05/03/23 13:03 Temperature Temperature Source Pulse Rate 93 Respiratory Rate Respiratory Effort Blood Pressure 131/77 H 115/76 124/96 H Blood Pressure Mean 89 105 Pulse Ox Oxygen Delivery Method 05/03/23 13:39 Temperature Temperature Source Pulse Rate 88 Respiratory Rate 18 Respiratory Effort Blood Pressure 128/101 H Blood Pressure Mean 110 Pulse Ox 95 Oxygen Delivery Method Positive well nourished and well developed Constitutional Narrative: Mildly uncomfortable appearing General Appearance ED: well developed and NAD HEENT Reports moist mucous membranes Eyes PERRL Neck supple and no JVD Chest Wall inspection of chest normal and palpation of chest normal Resp normal respiratory effort and clear to auscultation bilaterally Cardio regular rate, regular rhythm and no murmurs Peripheral Pulses: radial pulses present bilateral 2+ GI normal to inspection, nondistended, normoactive bowel sounds and soft to palpation Extremity normal to inspection General Extremety ED: Yes edema General Extremity: edema bilateral (Trace pedal) Neuro oriented x3 Sensorium / Orientation: awake and alert Psych mental status grossly normal Skin no rashes or lesions noted and no wounds Heart Score History: Highly Suspicious ECG: Significant ST-Depression Age: >/= 65 years Risk Factors: >/= 3 Risk Factors or History of CAD Troponin: >/=3 x Normal Limit Score: 10 MDM MDM MDM Narrative Medical decision making narrative: Patient evaluated for shoulder pain and chest discomfort. He does have a stent placed 2 days ago. Concern for possible occlusion of the stents even the patient has been compliant with his medicine. Case discussed with cardiology on-call who will come down to evaluate him. EKG does show new T wave inversions in the anterior leads. High since he troponin is elevated at 7940. Of note patient's troponin on 05/01 was 8901 ( day of his stent). Patient is given oral nitroglycerin for pain. Has improvement. Case is discussed with cardiology. Given elevation of troponin as well as this pain which could be an anginal equivalent and EKG changes with recent stent, will go for repeat catheterization for concern of possible occluded stent. Case is also discussed with hospitalist for admission. Patient agreeable to plan of care. Patient pain-free at time of disposition. Patient sent directly to the Reception Centre Manager from the ER. Lab Data Attestation: I reviewed the patient's lab results. Labs: Laboratory Results - last 24 hr 05/03/23 05/03/23 11:28 13:22 WBC 9.5 RBC 5.21 Hgb 15.9 Hct 46.5 MCV 89.3 MCH 30.5 MCHC 34.2 RDW Std Deviation 42.2 RDW Coeff of Dre 13.0 Plt Count 248 MPV 10.1 Immature Gran % (Auto) 0.500 Neut % (Auto) 63.2 Lymph % (Auto) 26.9 [place] % (Auto) 7.3 Eos % (Auto) 1.8 Baso % (Auto) 0.3 Absolute Neuts (auto) 6.0 Absolute Lymphs (auto) 2.56 Nucleated RBC % 0 Sodium 136 Potassium 3.6 Chloride 102 Carbon Dioxide 26.0 Anion Gap 8 BUN 17 Creatinine 1.14 Est GFR (MDRD) Af Amer 85 Est GFR (MDRD) Non-Af 70 BUN/Creatinine Ratio 14.9 Glucose 124 H Calcium 9.7 Troponin I High Sens 7940 H* 7685 H* Radiography Chest X-Ray - ED: 1 View, Read by ED Physician, Read by Radiologist and No Acute Disease Diagnostic Testing: Clinical Impression(s) from Imaging Studies Chest X-Ray 05/03/23 11:25 IMPRESSION: No acute cardiopulmonary process identified. Electronically Signed: Nisa Barajas MD at 11:40 EST , Rhythm Strip Rhythm Strip: Sinus Rhythm Rate: 89 Ectopy: None EKG Initial EKG: Attestation: I personally reviewed and interpreted this EKG as follows: Interpretation: Sinus Rhythm Comments: Normal sinus rhythm at a rate of 89 bpm Normal axis Normal intervals T wave inversions in the anterior leads which are new compared to prior EKG No ST elevations present Management Discussion w/another healthcare provider: Hospitalist and Industrial Truck Driver (Cardiology) Discharge Plan Dx/Rx/DC Orders Clinical Impression: CAD (coronary artery disease), [place] coronary artery, Elevated troponin, S/P coronary artery stent placement Disposition Disposition: Acute Care Hospital [facility] Discharge Date/Time: 05/03/23 13:40
[2023-05-03 13:32] LABS: Reflex Troponin-HS? (from REC) Y
--- NOTE | 2023-05-03 13:52 | HP.PCM.HOS_ITS ---
HPI - General General Date of Admission: 05/03/23 Date of Service: 05/03/23 Chief Complaint: Left arm pain, chest pain HPI Narrative CARLY ORELLANA, is a 58 M who presents to the emergency room at [facility] with complaints of left arm pain which started last night, he also stated that when he woke up this morning he had the same left arm pain, he describes it as a dull pain. Patient also had complaints to the emergency room physician today that he had chest discomfort but was not able to describe it to her. Patient has a history of a cardiac stent which was placed, EKG was obtained in the emergency room today and it showed T wave changes across the precordial leads. Labs obtained in the emergency room showed a normal white blood cell count, at the time of this dictation, troponin is pending, chemistry panel was unremarkable. Patient was given nitroglycerin in the emergency room with cessation of his arm pain and chest discomfort. Patient was seen by Dr. Burgos who advised taking the patient to the Fingernail Sculpturer from the emergency room. Patient will be placed in observation status after his cardiac catheterization today. [facility] Medical History CAD (coronary artery disease), [place] coronary artery Cardiomyopathy, ischemic Meningitis spinal Myasthenia gravis Home Medications atorvastatin 40 mg tablet 40 mg PO QHS 05/01/23 [History Last Taken Unknown] hydrochlorothiazide 1 cap PO DAILY 05/01/23 [History Last Taken Unknown] telmisartan 40 mg tablet 40 mg PO DAILY 05/01/23 [History Last Taken Unknown] aspirin 81 mg tablet,delayed release 81 mg PO DAILY@0800 30 days #30 tabs 05/02/23 [Rx Last Taken Unknown] carvedilol 3.125 mg tablet (Coreg) 3.125 mg PO BID #60 tabs 05/02/23 [Rx Last Taken Unknown] empagliflozin 10 mg tablet (Jardiance) 10 mg PO DAILY #30 tabs 05/02/23 [Rx Last Taken Unknown] ticagrelor 90 mg tablet (Brilinta) 90 mg PO BID 30 days #60 tabs 05/02/23 [Rx Last Taken Unknown] Allergy/AdvReac Type Severity Reaction Status Date / Time No Known Allergies Allergy Verified 05/03/23 11:03 Family History Mother Heart disease Father CVA (cerebral vascular accident) Diabetes Daughter Heart disease Surgical History S/P coronary artery stent placement (04/30/23) Social History Smoking Status: Never smoker ROS Constitutional Constitutional: Denies anorexia, change in weight, chills, fatigue, fever(s), night sweats or weakness Eyes Eyes: Denies blurry vision, change in vision, discharge from eye(s) or eye pain Cardiovascular Cardiovascular: Reports chest pain; Denies claudication, dyspnea on exertion, edema, lightheadedness or palpitations Respiratory/Chest Respiratory/Chest: Denies cough, hemoptysis, productive cough, shortness of breath at rest or shortness of breath with exertion Gastrointestinal Gastrointestinal: Denies abdominal pain, constipation, diarrhea, hematemesis, hematochezia, melena, nausea or vomiting Genitourinary Genitourinary: Denies dysuria, hematuria, urinary frequency, urinary hesitancy, urinary incontinence or urinary urgency Musculoskeletal Musculoskeletal: Denies back pain, joint pain, joint stiffness, joint swelling, myalgias or neck pain Neurologic Neurologic: Denies abnormal gait, abnormal speech, dizziness, focal weakness, headache(s), loss of vision, numbness, other visual disturbances, paresthesias, syncope or tingling Psychiatric Psychiatric: Denies anxiety, cognitive impairment, depression, irritability, mood swings or suicidal ideation Endocrine Endocrinology: Denies change in body appearance, cold intolerance, excessive sweating, heat intolerance, polydipsia or polyuria Hematologic/Lymphatic Hematologic/Lymphatic: Denies none, anemia, easy bleeding, easy bruising or lymphadenopathy Allergic/Immunologic Allergic/Immunologic: Denies rhinitis, urticaria, eczemia or asthma Vital Signs Vital Signs Vital Signs: 05/03/23 11:03 05/03/23 11:21 05/03/23 11:21 Temperature 98.2 F Temperature Source Temporal Pulse Rate 96 Respiratory Rate 18 Respiratory Effort Normal Non-Labored Blood Pressure 138/86 H Blood Pressure Mean 103 Pulse Ox 98 Oxygen Delivery Method Room Air Room Air 05/03/23 11:58 05/03/23 12:03 05/03/23 13:03 Temperature Temperature Source Pulse Rate 93 Respiratory Rate Respiratory Effort Blood Pressure 131/77 H 115/76 124/96 H Blood Pressure Mean 89 105 Pulse Ox Oxygen Delivery Method 05/03/23 13:39 Temperature Temperature Source Pulse Rate 88 Respiratory Rate 18 Respiratory Effort Blood Pressure 128/101 H Blood Pressure Mean 110 Pulse Ox 95 Oxygen Delivery Method Physical Exam Const alert, oriented x3, no apparent distress and healthy appearing General Appearance: cooperative, well kempt and well developed Orientation / Consciousness: awake, oriented to person, oriented to place and oriented to time HEENT normocephalic, head/scalp atraumatic, hearing grossly normal bilaterally and moist oral mucous membranes Eyes PERRL, EOMs intact bilaterally and conjunctivae normal Neck supple, no JVD and thyroid normal General: trachea midline Resp normal respiratory effort, no retractions, no use of accessory muscles and clear to auscultation bilaterally Auscultation: Negative for rales, rhonchi or wheezes Cardio regular rate, regular rhythm, S1 normal heart sound, S2 normal heart sound, no m urmurs, no rub and no gallops GI normal to inspection, nondistended, normoactive bowel sounds, soft to palpation, non-tender and non-distended Extremity no clubbing, cyanosis or edema Skin no rashes or lesions noted General Skin Exam: no breakdown Neuro oriented x3, CN's II-XII intact bilaterally, moves all extremities, no focal motor deficits and no sensory deficits noted Sensorium / Orientation: awake, alert, oriented to person, oriented to place and oriented to time Speech: speech normal Psych affect normal Results Lab / Micro Data 05/03/23 11:28 05/03/23 11:28 Labs: Laboratory Results - last 24 hr 05/03/23 11:28: WBC 9.5, RBC 5.21, Hgb 15.9, Hct 46.5, MCV 89.3, MCH 30.5, MCHC 34.2, RDW Std Deviation 42.2, RDW Coeff of Dre 13.0, Plt Count 248, MPV 10.1, Immature Gran % (Auto) 0.500, Neut % (Auto) 63.2, Lymph % (Auto) 26.9, [place] % (Auto) 7.3, Eos % (Auto) 1.8, Baso % (Auto) 0.3, Absolute Neuts (auto) 6.0, Absolute Lymphs (auto) 2.56, Nucleated RBC % 0, Sodium 136, Potassium 3.6, Chloride 102, Carbon Dioxide 26.0, Anion Gap 8, BUN 17, Creatinine 1.14, Est GFR (MDRD) Af Amer 85, Est GFR (MDRD) Non-Af 70, BUN/Creatinine Ratio 14.9, Glucose 124 H, Calcium 9.7, Troponin I High Sens 7940 H* Rhythm Strip Rhythm Strip: Sinus Rhythm Rate: 89 Ectopy: None Imagaing Radiology Impression Chest X-Ray 05/03/23 11:25 IMPRESSION: No acute cardiopulmonary process identified. Electronically Signed: Nisa Barajas MD at 11:40 EST , Assessment & Plan Assessment/Plan (1) Cardiomyopathy, ischemic: PLAN: Plan 1. Unstable angina-patient will undergo cardiac catheterization today, afterwards she will be placed into observation status on PCU. #2 coronary artery disease-patient had a stent placed on 05/01/2023 #3 ischemic cardiomyopathy-patient's EF was 45% #4 myasthenia gravis-patient takes no prescription medication for this. Total clinical time spent by myself addressing the patient's medical issues, reviewing all of his data, and collaborating with patient's care team: 55 minutes Charges/Coding Visit Charges Inpatient E&M: 29741 Init Hosp L2
[2023-05-03 14:02] LABS: Troponin-I HS 7685 pg/mL (3.0-78.0)
[2023-05-03] MEDS: Acetaminophen 325 MG Tablet 650 MG PO (15:57)
--- NOTE | 2023-05-03 16:36 | PCM.OP.PRO ---
Procedure Report Date of Procedure: 05/03/23 Left heart catheterization; 1. Selective left coronary angiography 2. Selective right coronary angiography 3. Placement of TR band to close the right radial artery arteriotomy site. Consent; Risk and benefit of procedure explained detail , informed consent obtained. Access; 6 Estonian sheaths placed in the right radial artery Diagnostic catheters used #1 5 Estonian JL 3.5 2. 5 Estonian JR4 diagnostic catheter Preprocedure diagnosis; 58-year-old patient recently was in the hospital at [facility] Where she had a clinical diagnosis of non-ST elevation MS Underwent PCI and stent of the LAD using a drug-eluting stent with primary stenting 3 x 15 mm with excellent result Patient brought into the hospital as she was complaining of chest discomfort and left shoulder pain. Had an EKG which showed change in the LAD distribution with more remarkable T wave inversion Subsequent elevation of cardiac marker it was trending down from previous. However he had significant change in the EKG in comparison to previous EKG demonstrating T wave inversion in the anterior lead. In addition to the symptoms of chest pain he continues to take his antiplatelet therapy, regularly as per patient and . Based on the clinical presentation we decided to proceed with a cardiac cath to assess patency of the LAD stent. Procedure in detail; Proceed with 5 Estonian JL 3 5 advancing wire to cannulate the left main without difficulty Following this multiple views of the left coronary system were obtained Following this the catheter exchanged for 5 Estonian JR4 and selective angiographic right Colesytramine obtained Following this all angiography were restarted Findings; Coronary angiography; 1. Left main is normal angiographically bifurcating into LAD and left circumflex 2. Left anterior descending large vessel reach all the way to the apex The stent in the mid LAD is patent There is atherosclerosis noted distal to the stent which is nonobstructive around 40-50%. The left anterior descending has a prominent diagonal and large septal branch and a bundle septal branches The left circumflex had a high OM1 which is normal and the circumflex in the AV groove is normal RCA was checked which is normal angiographically Conclusion and recommendations; Patient had patency of the LAD stent that demonstrated with disease distal to the stent in the mid LAD, nonobstructive around 30?40% Will recommend to continue on #1 dual antiplatelet therapy with Brilinta 90 mg twice daily in addition to low-dose aspirin for 1 year and to continue on aspirin indefinitely 2. To continue to follow-up with the cardiology group here at [facility] 3. Continue the rest of the guideline directed medical therapy for non-ST elevation MS which will include high-dose statin ADY inhibitor and beta-shabnam. I discussed the finding of cardiac catheterization in detail with the patient and the Patient will be admitted to the medical team I discussed with the medical team as well and will be observation overnight and if he is stable then he can be discharged home tomorrow. Andrés Burgos MD,FACC,[facility]
--- NOTE | 2023-05-03 16:58 | PCM.CONS.C ---
Assessment & Plan Assessment/Plan (1) S/P coronary artery stent placement: (2) CAD (coronary artery disease), [place] coronary artery: (3) Myasthenia gravis: (4) Non-ST elevation [place] (NSTEMI): (5) Elevated troponin: PLAN: Plan 58-year-old male presented to the ER at [facility] complaining of left arm pain which started evidently last night. Evidently patient also workup this morning he had the same left arm pain described as a dull pain and some chest discomfort when I saw him in the ER as well with the change in the EKG Was noted that there were more T wave inversion in the anterior lead Patient recently discharged from the hospital Has PCI stent of the LAD Using drug-eluting stent 3 x 15 mm [place] drug-eluting stent And based on his clinical presentation and being on dual antiplatelet therapy in addition to cardiac medication and statin aspirin, carvedilol, Jardiance, hydrochlorothiazide, ticagrelor And he was given some nitroglycerin in the ER which relieved his symptoms however he still having the shoulder discomfort based on the clinical presentation the cardiac markers were trending down took the patient to the Residential Le[facility] Manager To evaluate patency of the LAD stent which clearly demonstrate patency of the LAD with KALEB-3 flow in the LAD had nonobstructive sclerosis distal to the stent which I described around 40% With recommended strongly to continue medical therapy follow-up with the cardiac rehab program weight loss and exercise. Cardiac care plan recommendation I reinforced the importance of taking his medication as described 2. To follow-up with the teacher selection specialist at the [facility] outpatient Observation over the night And if stable then patient can be discharged home tomorrow. I discussed in detail the cardiac care plan with the as well as the patient. Andrés Burgos MD,FAC,[facility] HPI Consult Data Date of Consult: 05/03/23 HPI Narrative Reason for Consultation: nstemi HPI Narrative: CARLY ORELLANA, is a 58 M who presents [facility] Medical History CAD (coronary artery disease), [place] coronary artery Cardiomyopathy, ischemic Meningitis spinal Myasthenia gravis Home Medications atorvastatin 40 mg tablet 40 mg PO QHS 05/01/23 [History Last Taken Unknown] hydrochlorothiazide 1 cap PO DAILY 05/01/23 [History Last Taken Unknown] telmisartan 40 mg tablet 40 mg PO DAILY 05/01/23 [History Last Taken Unknown] aspirin 81 mg tablet,delayed release 81 mg PO DAILY@0800 30 days #30 tabs 05/02/23 [Rx Last Taken Unknown] carvedilol 3.125 mg tablet (Coreg) 3.125 mg PO BID #60 tabs 05/02/23 [Rx Last Taken Unknown] empagliflozin 10 mg tablet (Jardiance) 10 mg PO DAILY #30 tabs 05/02/23 [Rx Last Taken Unknown] ticagrelor 90 mg tablet (Brilinta) 90 mg PO BID 30 days #60 tabs 05/02/23 [Rx Last Taken Unknown] Allergy/AdvReac Type Severity Reaction Status Date / Time No Known Allergies Allergy Verified 05/03/23 11:03 Family History Mother Heart disease Father CVA (cerebral vascular accident) Diabetes Daughter Heart disease Surgical History S/P coronary artery stent placement (04/30/23) Social History Smoking Status: Never smoker Physical Exam Cardio Cardio Narrative: Patient seen evaluated in the ER Along with the medical team Having symptoms of left shoulder discomfort with some radiation to the left arm and when he presented he was having retrosternal chest pain The music grapher showed normal sinus Cardiovascular exam S1-S2 regular Chest exam clear to auscultation bilateral. Risk Stratification Risk Stratification Applicable: Yes Age >/= 65: No >/= 3 CAD Risk Factors (HTN, HLD, DM, family hx of CAD, or current smoker): Yes Aspirin Use in the Past 7 Days: Yes Severe Angina (>/= episodes in 24 hours): Yes EKG ST Changes >/= 0.5mm: Yes Positive Cardiac Marker: Yes KALEB Risk Stratification Score: 5 KALEB % Risk: 25% Risk Objective Data Vital Signs: Vital Signs Temp Pulse Resp BP Pulse Ox O2 Del Method 98.4 F 89 17 118/89 H 97 Room Air 05/03/23 15:00 05/03/23 16:00 05/03/23 16:00 05/03/23 16:00 05/03/23 16:00 05/03/23 16:00 Oxygen Delivery Method Room Air Weight: 279 lb 15.793 oz Body Mass Index (BMI) 38.0 Lab / Micro Data 05/03/23 11:28 05/03/23 11:28 Labs: Laboratory Results - last 24 hr 05/03/23 11:28: WBC 9.5, RBC 5.21, Hgb 15.9, Hct 46.5, MCV 89.3, MCH 30.5, MCHC 34.2, RDW Std Deviation 42.2, RDW Coeff of Dre 13.0, Plt Count 248, MPV 10.1, Immature Gran % (Auto) 0.500, Neut % (Auto) 63.2, Lymph % (Auto) 26.9, [place] % (Auto) 7.3, Eos % (Auto) 1.8, Baso % (Auto) 0.3, Absolute Neuts (auto) 6.0, Absolute Lymphs (auto) 2.56, Nucleated RBC % 0, Sodium 136, Potassium 3.6, Chloride 102, Carbon Dioxide 26.0, Anion Gap 8, BUN 17, Creatinine 1.14, Est GFR (MDRD) Af Amer 85, Est GFR (MDRD) Non-Af 70, BUN/Creatinine Ratio 14.9, Glucose 124 H, Calcium 9.7, Troponin I High Sens 7940 H* 05/03/23 13:22: Troponin I High Sens 7685 H* Rhythm Strip Rhythm Strip: Sinus Rhythm Rate: 89 Ectopy: None Cardiology Labs/Tests 05/03/23 11:28: WBC 9.5, RBC 5.21, Hgb 15.9, Hct 46.5, MCV 89.3, MCH 30.5, MCHC 34.2, Plt Count 248, MPV 10.1, Immature Gran % (Auto) 0.500, Neut % (Auto) 63.2, Lymph % (Auto) 26.9, [place] % (Auto) 7.3, Eos % (Auto) 1.8, Baso % (Auto) 0.3, Absolute Neuts (auto) 6.0, Nucleated RBC % 0, Sodium 136, Potassium 3.6, Chloride 102, Carbon Dioxide 26.0, Anion Gap 8, BUN 17, Creatinine 1.14, Est GFR (MDRD) Af Amer 85, Est GFR (MDRD) Non-Af 70, BUN/Creatinine Ratio 14.9, Glucose 124 H, Calcium 9.7 Rhythm: EKG: ECHO: Stress Test: Cardiac Cath: PCI: CT Surgery: Holter monitor: EPS: PPM: CXR: Chest CT Scan: Radiography Diagnostic Testing: Radiology Impression Chest X-Ray 05/03/23 11:25 IMPRESSION: No acute cardiopulmonary process identified. Electronically Signed: Nisa Barajas MD at 11:40 EST ,
--- NOTE | 2023-05-03 17:21 | CT_ITS ---
STUDY: CTA CHEST REASON FOR EXAM: Male, 58 years old. R/O aortic dissection RADIATION DOSAGE (If Supplied By Facility): CTDIvol = ( 18.6 ) mGy, DLP = ( 468.22 ) mGycm TECHNIQUE: The examination was performed with the intravenous administration of IV 100mL Isovue-370. Post-processing of the angiographic images was performed, with multiplanar reformation and 3D reconstruction. Individualized dose optimization techniques were used for this CT. COMPARISON: None. FINDINGS: Normal enhancement of the main pulmonary artery and right and left pulmonary arteries. Normal enhancement of the bilateral peripheral pulmonary arteries. There is no demonstrated pulmonary embolism. Normal thoracic aorta and visualized great vessels. There is no demonstrated aortic dissection. Normal heart and pericardium. Normal mediastinum. Normal hilar regions. Normal visualized trachea and bronchi. The lungs are underexpanded. Scattered mild mosaic pattern suggestive of small airway disease. Mild bilateral lower lobe atelectasis. Normal pleura. Normal chest wall structures. There are degenerative changes of thoracic spine. Diffuse fatty liver, remainder of the visualized upper abdominal structures unremarkable. CT/CTA Chest W/WO Contrast IMPRESSION: Negative CTA chest examination, without a demonstrated pulmonary embolism or arterial dissection. Mild bilateral lower lobe atelectasis with possible underlying small airway disease. Electronically Signed: Kate Clayton MD at 18:59 EST ,
[2023-05-03] MEDS: Carvedilol 3.125 MG TABLET PO (18:20)
[2023-05-03] MEDS: Atorvastatin Calcium 40 MG Tablet PO (19:36)
[2023-05-03] MEDS: TICAGRELOR 90 MG TABLET PO (19:36)
[2023-05-03] MEDS: HYDROcodone Bitartrate/Apap 5/325 Tablet PO (19:37)
[2023-05-04 02:00] VITALS: BP 111/79; PULSE 85; RESP 16; TEMP 36.6; O2SAT 95
[2023-05-04 07:36] VITALS: O2SAT 95
[2023-05-04 08:00] VITALS: BP 115/63; PULSE 93; RESP 18; TEMP 36.7; O2SAT 93
[2023-05-04] MEDS: TICAGRELOR 90 MG TABLET PO (09:12)
[2023-05-04] MEDS: Carvedilol 3.125 MG TABLET PO (09:12)
[2023-05-04] MEDS: Aspirin E.C. 81 MG Tablet PO (09:12)
[2023-05-04] MEDS: Losartan Potassium 50 MG Tablet PO (09:16)
--- NOTE | 2023-05-04 12:11 | DCINST_ITS ---
Discharge Instructions Diet Discharge Diet: Low fat / Low cholesterol Activity Discharge Activity: Return to Normal Activity Dressing / Incision Call your doctor if you observe: Fever of 101 or Higher, Shortness of breath, Dizziness, Fainting spells, Swelling in the ankles, Chest pain and Increased palpitations (irregular heartbeat) Follow Up Care Test Results: Test results from this visit will be discussed in further detail at your follow- up appointment, if applicable. Discharge Plan Admission Admit Date/Time: 05/03/23 17:24 Attending Provider: Edis Guzmán Primary Care Provider: Rodolfo Garcia Consulting Providers: Andrés Burgos Discharge Orders/Prescriptions Prescriptions: Continued hydrochlorothiazide 1 cap PO DAILY Rx Instructions: 12.5MG atorvastatin 40 mg tablet 40 mg PO QHS telmisartan 40 mg tablet 40 mg PO DAILY aspirin 81 mg Tablet,Delayed Release (Dr/Ec) 81 mg PO DAILY@0800 30 Days Qty: 30 0RF Brilinta 90 mg Tablet 90 mg PO BID 30 Days Qty: 60 0RF carvedilol [Coreg] 3.125 mg tablet 3.125 mg PO BID Qty: 60 0RF Rx Instructions: must administer with a meal/food Jardiance 10 mg tablet 10 mg PO DAILY Qty: 30 0RF Hold Instructions: waiting to start at this time. Referrals / Follow Up: Rodolfo Garcia DO [Primary Care Provider] - Within 1 Week Disposition Disposition (needs filled in before D/C Order can be placed): Home, Self Care
[2023-05-04 12:16] VITALS: BP 115/63; PULSE 93; RESP 18; TEMP 36.7; O2SAT 93
--- NOTE | 2023-05-04 13:43 | CASEMGMT ---
ALLISON GARCIA chart review: Patient was admitted 05/01-05/02/23 for NSTEMI. Patient had heart cath with stent placed. See ALLISON GARCIA assessment from 05/01/23. Patient was discharged to home with family support and Brilinta. Patient returned 05/03/23 for chest pain. ALLISON GARCIA in to room to discuss readmission and discharge needs. Patient states he was taking his medications as prescribed. Patient returned prior to follow-up appts. Patient has appt with [facility] on 05/23/23. Patient denied further needs or concerns at discharge. Patient had no further questions or concerns.
--- NOTE | 2023-05-04 14:36 | PN.CARD_ITS ---
<Statement entered by Andrés Burgos MD - 05/04/23 15:52> Pt seen & evaluated w/GEORGES. I personally interviewed & exam the pt. I was involved in all aspects of pt's orders, interpretation of results & treatment Subjective Subjective Pt see and examined. Pt still does have shoulder pain, but this worsening with movement. Objective Data Vital Signs: Vital Signs Temp Pulse Resp BP Pulse Ox O2 Del Method 98.0 F 93 18 115/63 93 Room Air 05/04/23 12:16 05/04/23 12:16 05/04/23 12:16 05/04/23 12:16 05/04/23 12:16 05/04/23 12:16 Oxygen Delivery Method Room Air Weight: 279 lb 15.793 oz Body Mass Index (BMI) 38.0 Intake & Output: Intake and Output for Last 24 Hours 05/02/23 05/03/23 05/04/23 23:59 23:59 23:59 Intake Total 440 / 440 360 / 360 Balance 440 / 440 360 / 360 Lab / Micro Data 05/03/23 11:28 05/03/23 11:28 Rhythm Strip Rhythm Strip: Sinus Rhythm Rate: 89 Ectopy: None Radiography Diagnostic Testing: Radiology Impression Chest CTA 05/03/23 17:21 IMPRESSION: Negative CTA chest examination, without a demonstrated pulmonary embolism or arterial dissection. Mild bilateral lower lobe atelectasis with possible underlying small airway disease. Electronically Signed: Kate Clayton MD at 18:59 EST Reading Location ID and State: [address] [place] [address] , Service support , Physical Exam Const alert, oriented x3, no apparent distress and healthy appearing HEENT normocephalic, head/scalp atraumatic, hearing grossly normal bilaterally, e xternal ears normal, external nose normal and moist oral mucous membranes Eyes PERRL, EOMs intact bilaterally, conjunctivae normal and no scleral icterus Neck no lymphadenopathy, supple and no JVD Cardio regular rate, regular rhythm, S1 normal heart sound, S2 normal heart sound, no murmurs, no rub, no gallops, no clicks, no JVD and peripheral pulses 2+ throughout GI normal to inspection, nondistended, normoactive bowel sounds, soft to palpation, non-tender and non-distended Extremity normal to inspection, normal capillary refill, no clubbing, cyanosis or edema and no pedal edema Extremity Narrative: right radial pulse normal Neuro oriented x3, CN's II-XII intact bilaterally, moves all extremities and no focal motor deficits Psych cooperative and affect normal Assessment & Plan Assessment/Plan (1) S/P coronary artery stent placement: (2) CAD (coronary artery disease), [place] coronary artery: (3) Myasthenia gravis: (4) Non-ST elevation [place] (NSTEMI): (5) Elevated troponin: (6) Cardiomyopathy, ischemic: PLAN: Plan * cardiac cath demonstrated patent stent * Will f/u with pt in office * Recommend continue medical management * Pt was unable to afford SGL2, will see if we can get pt assistance in office. Charges/Coding Visit Charges Inpatient E&M: 21515 Subs Hosp L2
--- NOTE | 2023-05-04 14:50 | PCM.DC.SUM ---
Providers Date of Admission: 05/03/23 Primary Care Physician: Dr. Rodolfo Garcia, Consultations 05/03/23 14:40 Consult: Cardiology Routine Consulting Provider: Andrés Burgos Reason for Consult: unstable angina EMERGENT Consult: No MD Notified: Yes Date Notified: 05/03/23 Time Notified: 14:20 Method of Notification: Verbal Reason For Visit: unstable angina Diagnosis Discharge Diagnosis (1) S/P coronary artery stent placement: Status: Acute Code(s): Z95.5 - Presence of coronary angioplasty implant and graft (2) CAD (coronary artery disease), [place] coronary artery: Status: Acute Code(s): I25.10 - Atherosclerotic heart disease of [place] coronary artery without angina pectoris (3) Myasthenia gravis: Status: Acute Code(s): G70.00 - Myasthenia gravis without (acute) exacerbation (4) Non-ST elevation [place] (NSTEMI): Status: Acute Code(s): I21.4 - Non-ST elevation (NSTEMI) myocardial infarction (5) Elevated troponin: Status: Acute Code(s): R79.89 - Other specified abnormal findings of blood chemistry (6) Cardiomyopathy, ischemic: Status: Acute Code(s): I25.5 - Ischemic cardiomyopathy Medications at Discharge Home Medications atorvastatin 40 mg tablet 40 mg PO QHS cholesterol 05/01/23 hydrochlorothiazide 1 cap PO DAILY diuretic 05/01/23 telmisartan 40 mg tablet 40 mg PO DAILY 05/01/23 aspirin 81 mg tablet,delayed release 81 mg PO DAILY@0800 heart health 30 days #30 tabs 05/02/23 carvedilol 3.125 mg tablet (Coreg) 3.125 mg PO BID blood pressure #60 tabs 05/02/23 empagliflozin 10 mg tablet (Jardiance) 10 mg PO DAILY diabetes #30 tabs 05/02/23 ticagrelor 90 mg tablet (Brilinta) 90 mg PO BID antiplatelet 30 days #60 tabs 05/02/23 Hospital Course Operations None Procedures Cardiac catheterization Summary of Care Provided Minutes Spent on Discharge: 33 Hospital Course: Per HPI: CARLY ORELLANA, is a 58 M who presents to the emergency room at [facility] with complaints of left arm pain which started last night, he also stated that when he woke up this morning he had the same left arm pain, he describes it as a dull pain. Patient also had complaints to the emergency room physician today that he had chest discomfort but was not able to describe it to her. Patient has a history of a cardiac stent which was placed, EKG was obtained in the emergency room today and it showed T wave changes across the precordial leads. Labs obtained in the emergency room showed a normal white blood cell count, at the time of this dictation, troponin is pending, chemistry panel was unremarkable. Patient was given nitroglycerin in the emergency room with cessation of his arm pain and chest discomfort. Patient was seen by Dr. Burgos who advised taking the patient to the [facility] from the emergency room. Patient will be placed in observation status after his cardiac catheterization today. Hospital Course: 1. Unstable angina in the setting of coronary artery disease status post stent on 04/30/2023?58-year-old male had previously presented to the hospital with chest pain found to have middle LAD lesion status post drug-eluting stent placement. He was discharged the next day with no distress on all of his medications and he says that he has been compliant with his medication but he presented back to the hospital with left arm pain and chest discomfort. EKG remains nonischemic and troponins were continuing to decline however given the recent stent placement he was taken for cardiac catheterization on the day of admission which demonstrated normal coronary arteries. He states that he has no more chest discomfort today and has been doing well otherwise. I discussed with him the plan for possible discharge today he expressed understanding of the risk benefits going home and would like to go home today. No medication adjustments were made we recommend continuing all his current medications and cardiology will attempt to get approval for the SGLT2 inhibitor on an outpatient basis. Physical Exam Narrative General: Alert, Oriented x3, Cooperative, No apparent distress, morbid obesity HEENT: Atraumatic, PERRLA, EOMI, Normocephalic Oral: Moist Mucosa Neck: Supple, No JVD Lungs: Diminished, Normal air movement, No rhonchi, No wheeze, No rales Cardiovascular: Regular rate, Regular Rhythm, Normal S1, Normal S2, No murmurs Abdomen: Soft, Non Tender, Non-Distended, No Hepato-splenomegaly Extremities: No edema, Capillary Refill Less than 3 Seconds Skin: No rashes, No breakdown Musculoskeletal: No Tenderness to Palpation of Joints or Extremities Neurological: Cranial nerves II-XII grossly intact, Motor Exam 5/5 strength throughout, Sensory exam intact to light touch and pain Psych/Mental Status: Normal affect Weight / BMI Weight Weight: 279 lb 15.793 oz Body Mass Index (BMI) 38.0 ABG / Lab / Microbiology Data 05/03/23 11:28 05/03/23 11:28 Radiography Diagnostic Testing: Radiology Impression Chest CTA 05/03/23 17:21 IMPRESSION: Negative CTA chest examination, without a demonstrated pulmonary embolism or arterial dissection. Mild bilateral lower lobe atelectasis with possible underlying small airway disease. Electronically Signed: Kate Clayton MD at 18:59 EST , D/C Instructions Discharge Diet: Low fat / Low cholesterol Call your doctor if you observe: Fever of 101 or Higher, Shortness of breath, Dizziness, Fainting spells, Swelling in the ankles, Chest pain and Increased palpitations (irregular heartbeat) Meaningful Use Info Meaningful Use Diagnoses (Choose all that apply): None applicable Discharge Plan Admission Admit Date/Time: 05/03/23 17:24 Attending Provider: Edis Guzmán Primary Care Provider: Rodolfo Garcia Consulting Providers: Andrés Burgos Discharge Orders/Prescriptions Prescriptions: Continued hydrochlorothiazide 1 cap PO DAILY Rx Instructions: 12.5MG atorvastatin 40 mg tablet 40 mg PO QHS telmisartan 40 mg tablet 40 mg PO DAILY aspirin 81 mg Tablet,Delayed Release (Dr/Ec) 81 mg PO DAILY@0800 30 Days Qty: 30 0RF Brilinta 90 mg Tablet 90 mg PO BID 30 Days Qty: 60 0RF carvedilol [Coreg] 3.125 mg tablet 3.125 mg PO BID Qty: 60 0RF Rx Instructions: must administer with a meal/food Jardiance 10 mg tablet 10 mg PO DAILY Qty: 30 0RF Hold Instructions: waiting to start at this time. Referrals / Follow Up: Rodolfo Garcia DO [Primary Care Provider] - Within 1 Week Disposition Disposition (needs filled in before D/C Order can be placed): Home, Self Care Charges/Coding Visit Charges Inpatient E&M: 42179 Disch Hosp >30min
== END 2023-05-04 15:06 | disposition home or self-care (01) | DRG 282 ==
LOC: ED 11:46 → CLSP 13:40 → PCU 14:34
PROVIDERS: Admitting Provider Internal Medicine; Emergency Provider Emergency Medicine; PCP Family Medicine; Visit Provider Family Medicine
DX: I21.4 Non-ST elevation (NSTEMI) myocardial infarction (principal); G70.00 Myasthenia gravis without (acute) exacerbation; E66.01 Morbid (severe) obesity due to excess calories; I25.110 Atherosclerotic heart disease of native coronary artery with unstable angina pectoris; I25.5 Ischemic cardiomyopathy; Z68.38 Body mass index [BMI] 38.0-38.9, adult; Z95.5 Presence of coronary angioplasty implant and graft; Z79.02 Long term (current) use of antithrombotics/antiplatelets; Z79.82 Long term (current) use of aspirin; Z79.899 Other long term (current) drug therapy; Z82.49 Family history of ischemic heart disease and other diseases of the circulatory system
CPT/HCPCS: 71045; 71275; 80048; 84484; 85025; 93005; 93454; 99285; J7030; Q9967; A4216

== ENCOUNTER → 2023-06-29 | Outpatient (CLI) | payer SELFPAY ==
[2023-06-29 16:13] LABS: Hematocrit 43.4 % (40-54); Hemoglobin 14.6 g/dL (13.0-16.5); Mean Corp Hgb Conc 33.6 g/dL (32-36); Mean Corpuscular Hgb 30.6 pg (27.0-32.0); Mean Platelet Vol. 10.8 fl (6.2-12.0); Platelet Count 225 K/mm3 (150-450); RBC Distribution Width CV 13.2 % (11.6-14.6); RBC Distribution Width SD 43.3 fl (35.1-43.9); Red Blood Count 4.77 M/mm3 (4.6-6.2); White Blood Count 9.4 K/mm3 (4.4-11.0)
[2023-06-29 16:37] LABS: BNP,B-Type NATRIURETIC PEPTIDE 4.3 pg/mL (0-100)
[2023-06-29 16:40] LABS: Anion Gap 5 (5-15); BUN 16 mg/dL (7-18); BUN/Creat Ratio 15.4 RATIO (10-20); Calcium,Total 9.7 mg/dL (8.5-10.1); Chloride 107 mmol/L (98-107); Creatinine, Serum 1.04 mg/dL (0.70-1.30); EST Glomerular Filtration Rate 78 mL/min (>60); Est Glom Filt Rate - Afr Amer 95 mL/min (>60); Glucose 118 mg/dL (74-106); Potassium 3.9 mmol/L (3.5-5.1); Sodium Level 141 mmol/L (136-145)
--- OUTSIDE RECORDS SUMMARY | 2023-06-29 17:32 | XMS RPT_ITS | CCD ---
Author Name Unknown Address [address] [place] [address] Organization [facility] Care Team Providers Care Assistant Operator Name Role Phone SPRING TURCIOS Unavailable Unavailable DELMY EDUARDO Unavailable Unavailable SPRING TURCIOS Unavailable Unavailable INGA PEÑA MD Admitting Unavailable SPRING TURCIOS Referring Unavailable SPRING TURCIOS Consulting Unavailable INGA PEÑA MD Attending Unavailable INGA PEÑA MD Primary Care Unavailable PROVIDER, UNKNOWN Consulting Unavailable Problems Problem Classification Problem Date Documented Date Episodic/Chronic Diverticulosis and diverticulitis (3 sources) Diverticulitis of intestine, part unspecified, without perforation or abscess without bleeding; Translations: [Diverticulitis of intestine, part unspecified, without perforation or abscess without bleeding] Onset: 05-10-2021 Chronic Results Test Name Value Interpretation Reference Range Facil ity Encounters Encounter Date Encounter Type Care Provider Facility Start: 05-10-2021 End: 05-14-2021 Evaluation and management of inpatient INGA PEÑA [facility] Start: 10-03-2017 End: 10-04-2017 Emergency department patient visit SPRING TURCIOS Facility:A Payers Date Payer Category Payer Self-pay Discharge summary note 05-22-2021 Note Date & Type Note Facility 05-22-2021 Note [facility] DISCHARGE SUMMARY NAME ACCOUNT SEX AGE ADMIT DISCHARGE PT MED. RECORD# NUMBER DATE DATE TYPE CARLY ORELLANA [id number] M 56 05/10/21 05/14/21 1 [id number] ROOM: [facility] DATE OF : 1965 ATTENDING PHYSICIAN: Inga Peña ADMITTING DIAGNOSIS: Severe diverticulitis. FINAL DIAGNOSES: 1. Severe diverticulitis, treated and improved. 2. History of Grave's disease. HOSPITAL COURSE: This 56-year-old gentleman with a history of Grave's disease, remote history of Clostridium difficile. The patient was in his usual state of health. The patient developed severe left lower quadrant pain, which got worse. It became so severe and it is stabbing towards the back, and he did present to the emergency room. Eh was treated with pain medication, and took multiple doses of Dilaudid without much relief. I was called because his CT scan did reveal significant diverticulitis and he had marked elevation in white count to 23,000. The patient had a high white count at 15.5. His electrolytes were initially normal. The patient was initiated on broad spectrum antibiotics with Zosyn, n.p.o. initially and IV fluids, and pain medication with morphine, which was able to control his pain very well. The patient had slow improvement, which reflects the severity of the diverticulitis. His CRP was 11.8. The patient started to improve slowly. On the day prior to discharge, I was planning to discharge the patient, but he still had tenderness in the left lower quadrant. I did repeat the CT scan, which revealed improvement. No rupture, and no air leakage. The patient then was discharged on the following day in stable condition. Condition on discharge was improved. MEDICATIONS ON DISCHARGE: Te patient was discharged on Augmentin 500 mg 3 times a day with meals and metronidazole 250 mg 3 times a day with meals. He was instructed to use probiotics daily for 2 months. The duration of antibiotics is 7 days. DISCHARGE INSTRUCTIONS/PLAN: Diet: Regular, high fiber. Activity as tolerated. Followup with primary care physician. Special instructions: The patient was specifically instructed to discuss with his primary care physician the need for colonoscopy for diagnostic purposes, as well as for being above the age of 45. Dictated By: Inga Peña MD 05/14/21 14:03 JOB #: [id number] Transcribed By: shy 05/15/21 13:43 Electronically signed by: Page 1 of 2 CARLY ORELLANA Discharge Summary CARLY ORELLANA : 1965 E-Sign: INGA PEÑA MD 05/22/21 14:13 Page 2 of 2 CARLY ORELLANA Discharge Summary [facility] Clinical Note 05-22-2021 Note Date & Type Note Facility 05-22-2021 Note [facility] PROGRESS NOTE NAME ACCOUNT SEX AGE ADMIT DISCHARGE PT MED. RECORD# NUMBER DATE DATE TYPE CARLY ORELLANA [id number] M 56 05/10/21 1 [id number] ROOM: 323 DATE OF : 1965 DICTATING PHYSICIAN: Inga Peña DATE OF SERVICE: May 11, 2021 SUBJECTIVE: Mr. Orellana has been doing well. He complained about some nasal congestion today. Otherwise, no chest pain. He has continued to have abdominal pain and still require the morphine. He is trying to stay away from it. OBJECTIVE: VITAL SIGNS: Vital signs have revealed the patient's highest temperature of 100 last night, blood pressure is 125/86, respiratory rate 20, heart rate 86. HEENT: Normocephalic and atraumatic. Pupils are round, equal, and reactive. Tongue to midline. NECK: Neck is supple. LUNGS: Lungs are clear. HEART: The heart was regular. ABDOMEN: Revealed left lower quadrant tenderness. EXTREMITIES: Extremities revealed no edema. DIAGNOSTIC DATA: Laboratory data has revealed his white count is down to 13,000, hemoglobin 13. Sodium is 140, potassium 3.8, BUN 16, and creatinine 1.05. ASSESSMENT/PLAN: 1. Diverticulitis, severe with some improvement today. We will go ahead and initiate the patient on full liquid diet. 2. Nasal congestion. It is very mild. The patient is afebrile at this point, but I discussed this with him. There are a lot of COVID-19 cases around, and we will test him for COVID-19 at this point. Meanwhile, we will continue monitoring with laboratories and await the test results. Dictated By: Inga Peña MD 05/11/21 16:28 JOB #: [id number] Transcribed By: am 05/11/21 18:35 Electronically signed by: E-Sign: INGA PEÑA MD 05/22/21 14:13 Page 1 of 2 ORELLANACARLY Progress Note CARLY ORELLANA : 1965 Page 2 of 2 CARLY ORELLANA Progress Note [facility] History and physical note 05-22-2021 Note Date & Type Note Facility 05-22-2021 Note [facility] HISTORY & PHYSICAL NAME ACCOUNT SEX AGE ADMIT DISCHARGE PT MED. RECORD# NUMBER DATE DATE TYPE CARLY ORELLANA [id number] Stacy 56 05/10/21 1 [id number] ROOM: 323 DATE OF : [birth year] DICTATING PHYSICIAN: Inga Peña ADMITTING DIAGNOSIS: Acute diverticulitis. CHIEF COMPLAINT: Abdominal pain. HISTORY OF PRESENT ILLNESS: The patient is a 56-year-old gentleman who is healthy. He has a history of hypertension, but is currently not on medication. He was doing well. Yesterday, he started to have a little bit of pain in his left lower quadrant. He described it like a needle stick. During the night, this pain got worse, and this morning it became so bad he had to present to the emergency room and required multiple doses of narcotics to control his pain. Eventually, he was admitted. He continued to have the same pain. Initially, I did go ahead and give him morphine and Ketorolac and the pain started to become under control. He did not have any constipation. His bowels have been regular. The pain is mostly on the left side, very sharp and like a stabbing knife. It is radiating towards the right side and posteriorly. He had mild nausea, but no vomiting. He had no blood in his bowel movements. He did not have any other related symptoms. He did feel hot and cold last night, but today his pain intensified. The patient presented to the emergency room. The exam revealed left lower quadrant tenderness. CT scan of the abdomen revealed diverticulitis on the left colon and he did have marked elevation in white count at 15,000 and he was admitted for management. When I saw the patient myself, he had already received the morphine. He feels slightly more comfortable. He is lying down. He is afebrile. PAST MEDICAL HISTORY: Remarkable for hypertension. The patient lost weight with diet, and appears to be under control according to him. The patient has myasthenia gravis. PAST SURGICAL HISTORY: (1) The patient has right inguinal hernia repair. (2) He had an appendectomy. MEDICATIONS: Current medications are none. Page 1 of 3 CARLY ORELLANA History & Physical CARLY ORELLANA :1965 ALLERGIES: None. FAMILY HISTORY: Both parents are , mother of myocardial infarction and father of stroke. SOCIAL HISTORY: The patient does not smoke or drink alcohol. He is . He has 7 children. 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 REVIEW OF SYSTEMS: The patient denied any fever or chills or night sweats. No headache, blurry vision, earache, or sore throat. No neck pain. No chest pain, shortness of breath, cough, nausea, but no vomiting. No constipation. No diarrhea, abdominal pain as described above. No pedal edema. No skin rashes. PHYSICAL EXAMINATION GENERAL APPEARANCE: This is a 56-year-old gentleman lying in bed fairly comfortable at the time of assessment. VITAL SIGNS: Vital signs revealed his temperature of 98.1, heart rate 112, blood pressure 167/106. HEENT: Normocephalic and atraumatic. Pupils are round, equal, and reactive. Tongue to midline. NECK: Neck is supple. LUNGS: Clear bilaterally. HEART: Regular, tachycardic without murmurs. ABDOMEN: Abdomen reveals severe tenderness with rebound in the left lower quadrant. No rigidity. No masses or organomegaly. The abdomen is obese. EXTREMITIES: Revealed no edema, cyanosis, or clubbing. DIAGNOSTIC DATA: Laboratory data has revealed his white count of 15.5. He had a left shift. Sodium is 137, potassium 4.1, BUN 10, creatinine 0.94. CT scan was reviewed. CRP was 11.8. IMPRESSION: 1. Severe diverticulitis on the left side, first episode. 2. Possible hypertension. The patient's blood pressure is elevated. He does have a Page 2 of 3 CARLY ORELLANA History & Physical CARLY ORELLANA :1965 history of hypertension, but he is not on any medication. PLAN: The patient will be admitted to the hospital. He will receive IV fluids, antibiotic, nothing by mouth for now. Pain controlled with morphine, Ketorolac, and antiemetics. He will receive deep venous thrombosis prophylaxis at this point with Lovenox. The patient has myasthenia gravis, and at this point, this does not appear to be active. I discussed diverticulosis, the etiology and management with the patient. I did explain to him the importance of having a colonoscopy in 4 to 6 weeks at least for now to evaluate the extent of his disease. We will check his laboratories in the morning. All of the above was discussed with the patient and his , and the plan of care. Dictated By: Inga Peña MD 05/10/21 15:12 JOB #: [id number] Transcribed By: am 05/10/21 15:27 Electronically signed by: E-Sign: INGA PEÑA MD 05/22/21 14:13 Update to H&P: [ ] No changes: I have examined the patient and reviewed the H&P and there are no changes. [ ] As previously dictated with the (more content not included)... [facility] Clinical Note 05-22-2021 Note Date & Type Note Facility 05-22-2021 Note [facility] PROGRESS NOTE NAME ACCOUNT SEX AGE ADMIT DISCHARGE PT MED. RECORD# NUMBER DATE DATE TYPE CARLY ORELLANA [id number] Stacy 56 05/10/21 1 [id number] ROOM: 323 DATE OF : 1965 DICTATING PHYSICIAN: Inga Peña DATE OF SERVICE: May 12, 2021 SUBJECTIVE: Mr. Orellana continues to improve. He still has significant pain requiring morphine. OBJECTIVE: Vital signs are otherwise stable. He is afebrile. HEENT is unremarkable. Neck is supple. Lungs reveal clear lung sow. Heart is regular. Abdomen revealed tenderness in the left lower quadrant quite significant. Extremities revealed no edema. DIAGNOSTIC DATA: Laboratory data today has revealed the white count down to normal at 9.7. Chemistries revealed a BUN of 13 and creatinine 0.93. ASSESSMENT: Diverticulitis with quite severe abdominal pain, which appears to be slightly improving. PLAN: We will proceed to increase the diet to a regular diet at this point. If the pain is reasonably controlled, the patient may be discharged on an oral antibiotic tomorrow. At this point, I will go ahead and discontinue the IV fluids. Dictated By: Inga Peña MD 05/12/21 11:38 JOB #: [id number] Transcribed By: bonnie 05/12/21 12:01 Electronically signed by: E-Sign: INGA PEÑA MD 05/22/21 14:13 Page 1 of 1 CARLY ORELLANA Progress Note [facility] Clinical Note 05-22-2021 Note Date & Type Note Facility 05-22-2021 Note [facility] PROGRESS NOTE NAME ACCOUNT SEX AGE ADMIT DISCHARGE PT MED. RECORD# NUMBER DATE DATE TYPE CARLY ORELLANA [id number] Stacy 56 05/10/21 1 [id number] ROOM: 323 DATE OF : 1965 DICTATING PHYSICIAN: Inga Peña DATE OF SERVICE: May 13, 2021 SUBJECTIVE: Mr. Orellana has been doing fairly well. We had reduced the amount of his pain medication, morphine, and the last one he took was last evening. He still has some pain, but he does not want to take morphine for it. He thinks he is uncomfortable. He did have a bowel movement. OBJECTIVE: VITAL SIGNS: The patient is afebrile. Blood pressure is 148/91. HEENT: Unremarkable. NECK: Neck is supple. LUNGS: Lungs are clear. HEART: The heart was regular. ABDOMEN: Abdominal examination still reveals significant tenderness in the left upper quadrant with a little bit of guarding. EXTREMITIES: Extremities revealed no edema. DIAGNOSTIC DATA: His white count is 9.7 from yesterday. ASSESSMENT: Diverticulitis, severe. The patient still has significant tenderness and guarding. PLAN: At this point, I will go ahead and order another CT scan to be sure the patient does not have a rupture. I explained this to the patient and his and the importance of checking this and also I still believe he is painful. Hopefully another day will help some more. We will order a CT of the chest. We will go ahead and order a cell count for tomorrow. Dictated By: Inga Peña MD 05/13/21 19:14 JOB #: [id number] Transcribed By: bonnie 05/14/21 12:09 Electronically signed by: E-Sign: INGA PEÑA MD 05/22/21 14:13 Page 1 of 1 CARLY ORELLANA Progress Note [facility] Summary Purpose Family History No Family History Records FoundNo Family History Records Found Advance Directives No Advanced Directives Records FoundNo Advanced Directives Records Found Additional Source Comments (unrecognized sect ion and content) No Status Records FoundNo Status Records Found INFORMATION SOURCE (unrecogn ized section and content) DATE CREATED AUTHOR AUTHOR'S ORGANIZ ATION 05/22/2021 [facility] FOR RECORDS PERTAINING TO PATIENTS WHO ARE OR HAVE BEEN ENROLLED IN A CHEMICAL DEPENDENCY/SUBSTANCEABUSE PROGRAM, SOME INFORMATION MAY BE OMITTED. This clinical summary was aggregated from multiple sources. Caution should be exercised in using it in the provision of clinical care. This summary normalizes information from multiple sources, and as a consequence, information in this document may materially change the coding, format and clinical context of patient data. In addition, data may be omitted in some cases. CLINICAL DECISIONS SHOULD BE BASED ON THE PRIMARY CLINICAL RECORDS. [facility]. provides no warranty or guarantee of the accuracy or completeness of information in this document.
== END | disposition home or self-care (01) ==
LOC: LAB 15:43
PROVIDERS: PCP Family Medicine; Referring Provider Physician Assistant Medical; Visit Provider Physician Assistant Medical
DX: R06.02 Shortness of breath (principal); R60.0 Localized edema; I25.5 Ischemic cardiomyopathy
CPT/HCPCS: 36415; 80048; 83880; 85027

== ENCOUNTER → 2023-07-04 | Outpatient (CLI) | payer SELFPAY, OTHER ==
--- NOTE | 2023-07-04 08:06 | ECHOLC_ITS ---
Version 2 Reason For Study: ISCHEMIC CARDIOMYOPATHY Procedure This was a limited 2D transthoracic echocardiogram. Contrast injection was performed. Exam performed in department. Left Ventricle Normal LV size. Left ventricular systolic function is normal. The estimated ejection fraction is 60 %. Stage 1 diastolic dysfunction. No regional wall motion abnormalities noted. Right Ventricle Normal RV size. Normal systolic function. Atria Normal left atrium. Normal right atrium. Mitral Valve Normal mitral valve. Tricuspid Valve Normal tricuspid valve. Aortic Valve Trisinus/trileaflet aortic valve. Mild focal aortic valve calcification. Pulmonic Valve Normal pulmonic valve. Great Vessels Normal aortic root. The pulmonary artery is normal size. Normal inferior vena cava. Pericardium/Pleural No pericardial effusion. Medication 22 gauge I.V. with prn adaptor inserted into left arm. Diluted definity 2.5ml given slow IV push to enhance endocardial definition. MMode/2D Measurements & Calculations LVIDd: 4.7 cm IVSd: 0.97 cm LVOT diam: 2.3 cm LVIDs: 2.8 cm LVPWd: 0.85 cm RVDd: 4.5 cm FS: 40.1 % LVOT area: 4.2 cm2 Ao root diam: 3.4 cm LAV(MOD-bp): 57.3 ml LVAd ap4: 37.4 cm2 LAV(MOD-bp) Indexed: 23.7 ml/m2 LVLd ap4: 9.0 cm LAV(MOD-sp2): 70.5 ml EDV(MOD-sp4): 121.5 ml LAV(MOD-sp4): 46.7 ml EDV(sp4-el): 131.1 ml LVAs ap4: 24.4 cm2 LVLs ap4: 7.9 cm ESV(MOD-sp4): 59.8 ml ESV(sp4-el): 64.2 ml EF(MOD-sp4): 50.8 % EF(sp4-el): 51.0 % LVAd ap2: 35.2 cm2 SV(MOD-sp4): 61.7 ml SV(MOD-sp2): 60.0 ml LVLd ap2: 8.4 cm EDV(MOD-sp2): 117.7 ml EDV(sp2-el): 124.5 ml LVAs ap2: 23.0 cm2 LVLs ap2: 7.2 cm ESV(MOD-sp2): 57.6 ml ESV(sp2-el): 62.3 ml EF(MOD-sp2): 51.0 % SV(sp4-el): 66.9 ml LA dimension(2D): 3.7 cm LA A4 area: 17.5 cm2 RA A4 area: 13.5 cm2 TAPSE: 1.7 cm Time Measurements MV dec time: 0.25 sec Doppler Measurements & Calculations MV E max erik: 58.9 cm/sec Lat Peak E' Erik: 14.3 cm/sec Med Peak E' Erik: 9.2 cm/sec MV A max erik: 79.8 cm/sec E/E' lat: 4.1 E/E' med: 6.4 MV E/A: 0.74 Ao V2 max: 166.4 cm/sec LV V1 max: 114.8 cm/sec MV dec slope: 232.6 cm/sec2 Ao max P.1 mmHg LV V1 max P.3 mmHg Ao V2 mean: 116.3 cm/sec LV V1 mean P.3 mmHg Ao mean P.1 mmHg LV V1 mean: 85.9 cm/sec Ao V2 VTI: 31.5 cm LV V1 VTI: 23.5 cm AV (velocity ratio): 0.75 ZIGYG(I,D): 3.2 cm2 ZIGGY(V,D): 2.9 cm2 SV(LVOT): 99.9 ml ECHO/Echo Limited w/Contrast Interpretation Summary Normal LV size. Left ventricular systolic function is normal. The estimated ejection fraction is 60 %. Stage 1 diastolic dysfunction. Compared to previous study, the left ventricular systolic function has improved .. Ordering Physician: Dutch Bailey Referring Physician: Dutch Bailey MD Performed By: Jacque Vera RDCS
== END | disposition home or self-care (01) ==
LOC: CVS 08:06
PROVIDERS: PCP Family Medicine; Referring Provider Internal Medicine Cardiovascular Disease; Visit Provider Internal Medicine Cardiovascular Disease
DX: I25.5 Ischemic cardiomyopathy (principal); I25.2 Old myocardial infarction
CPT/HCPCS: 93308; Q9957; A4216; C8924

== ENCOUNTER → 2023-10-30 | Outpatient (CLI) | payer OTHER, SELFPAY ==
[2023-10-30 13:09] LABS: BNP,B-Type NATRIURETIC PEPTIDE 2.7 pg/mL (0-100)
[2023-10-30 13:22] LABS: Anion Gap 6 (5-15); BUN 22 mg/dL (7-18); BUN/Creat Ratio 19.5 RATIO (10-20); Calcium,Total 9.5 mg/dL (8.5-10.1); Chloride 101 mmol/L (98-107); Creatinine, Serum 1.13 mg/dL (0.70-1.30); EST Glomerular Filtration Rate 71 mL/min (>60); Est Glom Filt Rate - Afr Amer 86 mL/min (>60); Glucose 109 mg/dL (74-106); Potassium 3.6 mmol/L (3.5-5.1); Sodium Level 136 mmol/L (136-145)
== END | disposition home or self-care (01) ==
PROVIDERS: PCP Family Medicine; Referring Provider Internal Medicine Cardiovascular Disease; Visit Provider Internal Medicine Cardiovascular Disease
DX: R06.02 Shortness of breath (principal)
CPT/HCPCS: 36415; 80048; 83880

== ENCOUNTER → 2024-01-31 | Outpatient (CLI) | payer OTHER, SELFPAY ==
[2024-01-31 12:42] LABS: Absolute Lymphocyte Count 3.19 X10^3/uL (0.83-4.51); Absolute Neutrophil Count 4.2 X10^3/uL (2.0-7.7); Basophil# 0.03 X10^3/uL; Basophil% 0.4 % (0-1); Eosinophil# 0.19 X10^3/uL; Eosinophils% 2.3 % (0-5); Hematocrit 43.2 % (40-54); Hemoglobin 14.6 g/dL (13.0-16.5); Lymphocyte # 3.19 X10^3/ul (0.83-4.51); Lymphocyte % 38.6 % (19-41); Mean Corp Hgb Conc 33.8 g/dL (32-36); Mean Corpuscular Hgb 30.6 pg (27.0-32.0); Mean Corpuscular Volume 90.6 fL (80-94); Mean Platelet Vol. 11.2 fl (6.2-12.0); Monocyte# 0.67 X10^3/uL; Monocyte% 8.1 % (0-10); NRBC Flagged by Analyzer 0 % (0-5); Neutrophil # 4.15 X10^3/uL (2.7-7.7); Neutrophil % 50.2 % (47-70); Platelet Count 207 K/mm3 (150-450); RBC Distribution Width CV 12.5 % (11.6-14.6); RBC Distribution Width SD 41.2 fl (35.1-43.9); Red Blood Count 4.77 M/mm3 (4.6-6.2); White Blood Count 8.3 K/mm3 (4.4-11.0)
[2024-01-31 12:50] LABS: Anion Gap 5 (5-15); BUN 14 mg/dL (7-18); BUN/Creat Ratio 14.3 RATIO (10-20); Calcium,Total 9.6 mg/dL (8.5-10.1); Chloride 105 mmol/L (98-107); Creatinine, Serum 0.98 mg/dL (0.70-1.30); EST Glomerular Filtration Rate 83 mL/min (>60); Est Glom Filt Rate - Afr Amer 101 mL/min (>60); Glucose 97 mg/dL (74-106); Potassium 4.1 mmol/L (3.5-5.1); Sodium Level 139 mmol/L (136-145); Troponin-I HS 7 pg/mL (3.0-78.0)
[2024-01-31 12:56] LABS: Hemoglobin A1c 6.4 % (3.8-5.6)
== END | disposition home or self-care (01) ==
LOC: LAB 10:54
PROVIDERS: PCP Family Medicine; Referring Provider Nurse Practitioner Family; Visit Provider Nurse Practitioner Family
DX: R07.9 Chest pain, unspecified (principal); R06.02 Shortness of breath; Z95.5 Presence of coronary angioplasty implant and graft
CPT/HCPCS: 36415; 80048; 83036; 84484; 85025

== ENCOUNTER → 2025-02-13 | Outpatient (CLI) | payer OTHER, SELFPAY ==
[2025-02-13 11:18] LABS: AST(SGOT) 47 U/L (<=37); Alanine Aminotransfer ALT/SGPT 65 U/L (<=46); Albumin, Serum 4.3 g/dL (3.5-5.0); Alkaline Phosphatase 84 U/L (40-129); Anion Gap 12 (5-15); BUN 14 mg/dL (4-19); BUN/Creat Ratio 14.7 RATIO (10-20); Calcium,Total 9.4 mg/dL (7.6-11.0); Carbon Dioxide 24.4 mmol/L (21.0-32.0); Chloride 103 mmol/L (98-108); Cholesterol 234 mg/dL (<=200); Globulin 2.8 g/dL (2.2-4.2); Glucose 110 mg/dL (70-99); Low Density Lipoprotein Calc. 129 mg/dL; Potassium 4.1 mmol/L (3.3-5.1); Triglycerides 344 mg/dL; Very Low Density Lipoprotein 69 mg/dL (5-40); cholesterol:hdl ratio screen 6.43
== END | disposition home or self-care (01) ==
LOC: LAB 10:13
PROVIDERS: PCP Nurse Practitioner Family; Referring Provider Physician Assistant Medical; Visit Provider Physician Assistant Medical
DX: R07.9 Chest pain, unspecified (principal); Z95.5 Presence of coronary angioplasty implant and graft
CPT/HCPCS: 36415; 80053; 80061